=== PATIENT | female | born 1955 | race African-American/Black ===

== ENCOUNTER 2018-03-26 01:33 | Inpatient (IN) | payer OTHER ==
[~2018-03-26] VITALS: Ht 160 cm; Wt 60.8 kg
[~2018-03-26 01:33] MED LIST: FLOMAX(MONOGRA0.4 MG PO; PERCOCET 325 MG1 TA2 PO; PERCOCET 5-3251 EACH PO; ZOFRAN ODT4 M1 SL
--- NOTE | 2018-03-26 01:40 | ED DYSPNEA/ASTHMA COMPLAINT ---
History of Present Illness General Chief Complaint: General Adult Stated Complaint: UNRESPONSIVE Source: family Exam Limitations: no limitations Vital Signs & Intake/Output Vital Signs & Intake/Output Vital Signs Date Time Temp Pulse Resp B/P B/P Pulse O2 O2 Flow FiO2 Mean Ox Delivery Rate 03/26 0526 95 100 03/26 0454 96.5 106 20 103/65 100 BIPAP 25% 03/26 0400 97.9 89 18 110/78 100 BIPAP 03/26 0358 100 BIPAP 28% 03/26 0326 100 26 110/70 100 BIPAP 03/26 0203 123 20 179/101 100 Non ReBreather 03/26 0200 128 99 03/26 0200 99 BIPAP 30% 03/26 0151 99 BIPAP 30% 03/26 0140 100 Non 10L ReBreather Allergies Coded Allergies: NO KNOWN ALLERGIES (09/01/15) Reconcile Medications Budesonide/Formoterol Fumarate (Symbicort 160-4.5 Mcg Inhaler) 160 MCG-4.5 MCG/ ACTUATION HFA.AER.AD 2 PUF INH BID ASTHMA (Reported) Diazepam 10 MG TABLET 1 TAB PO TIDPRN ANXIETY (Reported) Ondansetron (Zofran Odt) 4 MG TAB.RAPDIS 1 TAB SL TID PRN nausea Oxycodone HCl/Acetaminophen (Percocet 5-325 MG Tablet) 1 EACH TABLET 1-2 TAB PO TID PRN pain sixteen....[id number] Triage Nurses Notes Reviewed? yes Onset: Abrupt Duration: hour(s):, getting worse Timing: single episode today Severity: moderate Activities at Onset: none Prior Episodes/Possible Cause: occasional episodes Modifying Factors: Worsens With: other (better with nrb). Associated Symptoms: cough Patient currently breastfeeds: No HPI: 63 yo woman h/o chronic pain, h/o asthma, presents extremely lethargic, with minimal respiratory effort. Per the family, "she was fine, but then suddenly she had problem breathing." Past History Travel History Traveled to [place] past 21 day No Medical History Any Pertinent Medical History? see below for history Neurological: NONE EENT: NONE Cardiovascular: hypertension Respiratory: asthma Gastrointestinal: NONE Hepatic: NONE Renal: nephrolithiasis Musculoskeletal: NONE Psychiatric: NONE Endocrine: BORDERLINE DM Blood Disorders: NONE Cancer(s): NONE TELEPHONE ENGINEER/Reproductive: NONE Surgical History Surgical History: non-contributory Psychosocial History What is your primary language Upper Sorbian Family History Hx Contributory? No Review of Systems Review of Systems Constitutional: Reports: no symptoms. EENTM: Reports: no symptoms. Respiratory: Reports: no symptoms. Cardiovascular: Reports: no symptoms. GI: Reports: no symptoms. Genitourinary: Reports: no symptoms. Musculoskeletal: Reports: no symptoms. Skin: Reports: no symptoms. Neurological/Psychological: Reports: no symptoms. Hematologic/Endocrine: Reports: no symptoms. Immunologic/Allergic: Reports: no symptoms. All Other Systems: Reviewed and Negative Physical Exam Physical Exam Respiratory: rhonchi Comments: Review of Systems - except as otherwise noted in HPI Review of Systems Constitutional:no symptoms. EENTM:no symptoms. Respiratory:no symptoms. Cardiovascular:no symptoms. GI:no symptoms. Genitourinary:no symptoms. Musculoskeletal:no symptoms. Skin:no symptoms. Neurological/Psychological:no symptoms. Hematologic/Endocrine:no symptoms. Immunologic/Allergic:no symptoms. All Other Systems: Reviewed and Negative Physical Exam Physical Exam General Appearance: well developed/nourished, no apparent distress Head: atraumatic, normal appearance Eyes: Bilateral: normal appearance. Ears, Nose, Throat: normal pharynx, normal ENT inspection Neck: normal inspection, supple, full range of motion Respiratory: Bilateral rhonchi with diminished breath sounds Cardiovascular: regular rate/rhythm Gastrointestinal: normal bowel sounds, soft, non-tender, no organomegaly Back: normal inspection, normal range of motion Extremities: normal inspection, normal capillary refill, normal range of motion, mild to moderate anasarca of upper and lower extremities Neurologic/Psych: no motor/sensory deficits, awake, alert, oriented x 3 Skin: intact, normal color, warm/dry Core Measures ACS in differential dx? No CVA/TIA Diagnosis No Sepsis Present: No Sepsis Focused Exam Completed? No Progress Differential Diagnosis: CHF versus pneumonia versus asthma versus other Plan of Care: Orders Procedure Date/time Status CBC WITHOUT DIFFERENTIAL 03/27 0500 Active TROPONIN LEVEL 03/26 0700 Active EKG 03/26 0700 Active Pathway - chart 03/26 0454 Active Code Status 03/26 0454 Active LACTIC ACID 03/26 0436 Complete Patient Data 03/26 0351 Active Admit to inpatient 03/26 0346 Active Intake & Output 03/26 0222 Active ARTERIAL BLOOD GAS (GEN) 03/26 0143 Complete BLOOD CULTURE 03/26 0140 Active BLOOD CULTURE 03/26 0136 Active URINE DRUG SCREEN FOR ER ONLY 03/26 013 Complete URINALYSIS 03/26 013 Complete TROPONIN LEVEL 03/26 013 Active LIPASE 03/26 013 Active LACTIC ACID 03/26 013 Active HEPATIC FUNCTION PANEL 03/26 013 Active ETHANOL 03/26 0136 Active D-DIMER 03/26 013 Complete CBC WITHOUT DIFFERENTIAL 03/26 136 Complete BASIC METABOLIC PANEL 03/26 013 Active AMYLASE 03/26 013 Active EKG 03/26 013 Active TOTAL IRON BINDING CAPACITY 03/26 0125 Active FOLIC ACID 03/26 012 Active FERRITIN 03/26 012 Active SERUM IRON 03/26 012 Active VITAMIN B12 03/26 0125 Active TRC EVALUATION (GEN) 03/26 UNK Active PEAK FLOW MEASUREMENT (GEN) 03/26 UNK Active BIPAP 03/26 UNK Complete House Staff 03/26 UNK Active Lab Add-on Test 03/26 UNK Active VTE Mechanical Prophylaxis 03/26 UNK Active Vital Signs 03/26 UNK Active Current Medications Sig/Jose Start time Last Medication Dose Stop Time Status Admin Methylprednisolone 40 MG Q6 03/26 1200 AC (Solumedrol) Azithromycin 500 MG DAILY 03/26 0900 AC (Zithromax) Sodium Chloride 250 ML (Normal Saline 0.9%) Budesonide/ 2 PUF BID 03/26 0900 AC Formoterol Fumarate (Symbicort) Enoxaparin Sodium 30 MG DAILY 03/26 0900 UNVr (Lovenox) Albuterol Sulfate 3 ML Q4P PRN 03/26 0500 AC (Proventil) Sodium Chloride 1,000 ML ONCE ONE 03/26 0500 AC (Normal Saline 0.9%) 03/26 1819 Magnesium Sulfate 1 GM ONCE ONE 03/26 0345 AC (Mag Sulfate in D5) 03/26 0744 Dextrose/Water 100 ML (D5W) Laboratory Tests 03/26/18 0449: Lactic Acid 1.4 03/26/18 0350: Urine Opiates Screen > 4000.00 H, Methadone Screen < 40, Barbiturate Screen < 60, Ur Phencyclidine Scrn < 6.00, Amphetamines Screen < 100, U Benzodiazepines Scrn < 85, Urine Cocaine Screen < 50, Urine Cannabis Screen 6.40, Urinalysis LIGHT H, Urine Color YEL, Urine Clarity HAZY H, Urine pH 6.0, Ur Specific Hoskins >= 1.030, Urine Protein 30 H, Urine Ketones NEG, Urine Nitrite NEG, Urine Bilirubin NEG, Urine Urobilinogen 0.2, Ur Leukocyte Esterase TRACE H, Ur Microscopic SEDIMENT EXAMINED, Urine RBC 5-10 H, Urine WBC 3-5 H, Ur Epithelial Cells FEW, Urine Bacteria FEW H, Urine Hemoglobin MOD H, Urine Glucose NEG 03/26/18 0246: pH 7.28 *L, pCO2 42, pO2 217 H, HCO3 20 L, ABG O2 Sat (Measured) 97.0, P-50 ( Temp Corrected) 98.9, Carboxyhemoglobin 0.3 L, O2 Concentration % 30%, Temperature 98.9, Respiration Rate 20, O2 Delivery Method Pending, Vent Mode S/T , Expiratory Pressure 4, Inspiratory Pressure 14, Phlebotomy Draw Site RIGHT RADIAL 03/26/18 0125: Anion Gap 11, Estimated GFR 56 L, BUN/Creatinine Ratio 14.0, Glucose 172 H, Lactic Acid 5.7 H, Calcium 9.2, Iron Pending, TIBC Pending, Ferritin Pending, Total Bilirubin 0.4, Direct Bilirubin 0.2, AST 51 H, ALT 49, Alkaline Phosphatase 58, Troponin I < 0.01, Total Protein 6.0 L, Albumin 3.3 L, Amylase 86, Lipase 68, Vitamin B12 Pending, Folate Pending, D-Dimer High Sensitivty 229, CBC w Diff NO MAN DIFF REQ, RBC 3.99 L, MCV 76.6 L, MCH 23.4 L, MCHC 30.5 L, RDW 17.8 H, MPV 7.8, Gran % 35.8 L, Lymphocytes % 46.6, Monocytes % 11.4 H, Eosinophils % 5.4 H, Basophils % 0.8, Absolute Granulocytes 4.2, Absolute Lymphocytes 5.5 H, Absolute Monocytes 1.3 H, Absolute Eosinophils 0.6, Absolute Basophils 0.1, Serum Alcohol < 10.0 Microbiology 03/26 216 BLOOD: Blood Culture - RECD 03/26 0153 BLOOD: Blood Culture - RECD Diagnostic Imaging: Viewed by Me: Radiology Read. Discussed w/RAD: Radiology Read. CXR Impression: PATIENT: VARSHA BESS PRESENT AGE: 63 PATIENT ACCOUNT NO: [id number] : 53 LOCATION: [facility] ORDERING PHYSICIAN: Demetrio Damon MD SERVICE DATE: 03/26/18 EXAM TYPE: RAD - XRY- PORTABLE CHEST XRAY EXAMINATION: XR PORTABLE CHEST CLINICAL INFORMATION: Dyspnea COMPARISON: None TECHNIQUE: Portable frontal view of the chest was obtained. FINDINGS: Lung volumes are symmetric. No focal consolidation is seen. There is suggestion of central peribronchial thickening. No evidence of pneumothorax, pleural effusion, or overt pulmonary edema. The cardiomediastinal contour is unremarkable. No acute osseous findings are seen. IMPRESSION: Suggestion of bronchial wall thickening which can be seen with bronchitis. No focal consolidation identified. DICTATED BY: Sal Mas MD DATE/TIME DICTATED:04/07 HEALTH COMMUNICATIONS SPECIALIST:KORY DATE/TIME TRANSCRIBED:03/26/18300 CONFIDENTIAL, DO NOT COPY WITHOUT APPROPRIATE AUTHORIZATION. <Electronically signed in Other Vendor System> SIGNED BY: Sal Mas MD 03/26/18305 Initial ED EKG: sinus tach, no acute changes. Departure Departure Disposition: STILL A PATIENT Condition: Stable Clinical Impression Primary Impression: Respiratory failure Secondary Impressions: Lactic acidosis, Opioid overdose, Status asthmaticus Referrals: Buzz SCHMITZ,Pedro Cardoza (PCP/Family) Departure Forms: Customer Survey General Discharge Information Admission Note Spoke With: Leeann Upton [facility] Documentation of Exam: Documentation of any treatments & extenuating circumstances including Concerns Regarding Discharge (functional status, medication knowledge or non-compliance, living conditions, etc.) that warrant an admission rather than observation: pt with respiratory failure, requiring sub cut epi, naltrexone, continuous nebs, bipap to stabilize... pt also given steroids/abx... pt merits icu level care for careful management. Critical Care Note Critical Care Note Critical Care Time: 30-74 min
[2018-03-26 02:04] LABS: ABSOLUTE BASOPHIL COUNT 0.1 /CUMM (0.0-0.2); ABSOLUTE EOSINOPHIL COUNT 0.6 /CUMM (0.0-0.7); ABSOLUTE GRANULOCYTE CT 4.2 /CUMM (1.4-6.5); ABSOLUTE LYMPH COUNT 5.5 /CUMM (1.2-3.4); ABSOLUTE MONOCYTE COUNT 1.3 /CUMM (0.10-0.60); BASOPHIL % 0.8 % (0.0-2.0); EOSINOPHIL % 5.4 % (0-5); HEMATOCRIT 30.6 % (37-47); MEAN CORPUSCULAR HGB 23.4 PG (27.0-31.0); MEAN CORPUSCULAR HGB CONC 30.5 G/DL (33.0-37.0); MEAN CORPUSCULAR VOLUME 76.6 FL (81.0-99.0); MEAN PLATELET VOLUME 7.8 FL (7.4-10.4); PLATELET COUNT 442 /CUMM (130-400); RBC DISTRIBUTION WIDTH 17.8 % (11.5-14.5); RED BLOOD CELL CT 3.99 /CUMM (4.20-5.40); WHITE BLOOD CELL COUNT 11.8 /CUMM (4.8-10.8)
[2018-03-26 02:14] LABS: GRANULOCYTE % 35.8 % (42.2-75.2)
--- NOTE | 2018-03-26 03:06 | RADIOLOGY REPORT ---
EXAMINATION: XR PORTABLE CHEST CLINICAL INFORMATION: Dyspnea COMPARISON: None TECHNIQUE: Portable frontal view of the chest was obtained. FINDINGS: Lung volumes are symmetric. No focal consolidation is seen. There is suggestion of central peribronchial thickening. No evidence of pneumothorax, pleural effusion, or overt pulmonary edema. The cardiomediastinal contour is unremarkable. No acute osseous findings are seen. IMPRESSION: Suggestion of bronchial wall thickening which can be seen with bronchitis. No focal consolidation identified.
--- NOTE | 2018-03-26 03:56 | History & Physical ---
Jorge Morse MD,[facility] 03/26/18 0355: General Information and HPI MD Statement: I have seen and personally examined VARSHA BESS and documented this H&P. The patient is a 63 year old F who presented with a patient stated chief complaint of [being unresponsive]. Source of Information: patient, family, old records Exam Limitations: unable to give history, BIPAP in place alert and oriented at time of interview History of Present Illness: Patient is a 63-year-old female with PMH HTN, asthma, anemia, kidney stone ( multiple sx recently, last one 5m ago), impaired blood glucose tolerance, chronic pain due to OA (on pain meds, follows Dr pak), gastric bypass surgery in 2002, presented to the ED with chief complaint of "having trouble breaking" and being unresponsive. Patient was initially unresponsive at the time of arrival to ED, however she was alert and oriented at the time of interview, family members were also present at the bedside contributing in history taking. According to family patient was in usual state of health until earlier in the evening, when she noted she is having problem bleeding due to asthma attack. She used inhalers without improvement and asked family members to bring her to hospital. She lost consciousness in the way to hospital. According to the family she has chronic cough and sputum, which is her baseline. She also has chronic pain of right shoulder and right kidney for which she follows Dr Pak, and takes Valium and Percocet. Patient had history of taking more pills in the past. She also has seasonal allergy, postnasal discharge, nausea or vomiting. Is chronic after bypass surgery, she denied any fever or chills. Review of systems was negative except above. She never had history of intubation or assisted ventilation in the past Patient lives with her sons (possible drug user) doesn't smoke or drink alcohol but chews tobacco. Family history is significant for lung and throat cancer in sister. Patient currently works in [employer] and will retire in one months. A Allergies/Medications Allergies: Coded Allergies: NO KNOWN ALLERGIES (09/01/15) Past History Travel History Traveled to [place] past 21 day No Medical History Neurological: NONE EENT: NONE Cardiovascular: hypertension Respiratory: asthma Gastrointestinal: NONE Hepatic: NONE Renal: nephrolithiasis Musculoskeletal: NONE Psychiatric: NONE Endocrine: BORDERLINE DM Blood Disorders: NONE Cancer(s): NONE CUSTOM GRINDER/Reproductive: NONE Surgical History Surgical History: non-contributory Past Family/Social History Psychosocial History Illicit Drug Use: U Review of Systems Review of Systems Constitutional: Reports: see HPI. Exam & Diagnostic Data Last 24 Hrs of Vital Signs/I&O Vital Signs Date Time Temp Pulse Resp B/P B/P Pulse O2 O2 Flow FiO2 Mean Ox Delivery Rate 03/26 0454 96.5 106 20 103/65 100 BIPAP 25% 03/26 0400 97.9 89 18 110/78 100 BIPAP 03/26 0358 100 BIPAP 28% 03/26 0326 100 26 110/70 100 BIPAP 03/26 0203 123 20 179/101 100 Non ReBreather 03/26 0200 128 99 03/26 0200 99 BIPAP 30% 03/26 0151 99 BIPAP 30% 03/26 0140 100 Non 10L ReBreather Intake & Output 03/26 0800 03/26 0000 03/25 1600 Intake Total 0 Output Total Balance 0 Intake, Oral 0 Physical Exam General Appearance Alert, Oriented X3, Cooperative, drowsy but arousable, BiPAP in place Skin No Significant Lesion Skin Temp/Moisture Exam: Warm/Dry Sepsis Skin Exam (color): Normal for Ethnicity HEENT Atraumatic, EOMI, pupils reactive to light Neck No JVD Cardiovascular Regular Rate, Normal S1, Normal S2 Lungs decreased air entry bilaterally Abdomen Soft, No Tenderness Neurological Normal Speech, Strength at 5/5 X4 Ext Extremities No Edema Last 24 Hrs of Labs/[place]: Laboratory Tests 03/26/18 0449: Lactic Acid Pending 03/26/18 0350: Urine Opiates Screen > 4000.00 H, Methadone Screen < 40, Barbiturate Screen < 60, Ur Phencyclidine Scrn < 6.00, Amphetamines Screen < 100, U Benzodiazepines Scrn < 85, Urine Cocaine Screen < 50, Urine Cannabis Screen 6.40, Urinalysis LIGHT H, Urine Color YEL, Urine Clarity HAZY H, Urine pH 6.0, Ur Specific [place] >= 1.030, Urine Protein 30 H, Urine Ketones NEG, Urine Nitrite NEG, Urine Bilirubin NEG, Urine Urobilinogen 0.2, Ur Leukocyte Esterase TRACE H, Ur Microscopic SEDIMENT EXAMINED, Urine RBC 5-10 H, Urine WBC 3-5 H, Ur Epithelial Cells FEW, Urine Bacteria FEW H, Urine Hemoglobin MOD H, Urine Glucose NEG 03/26/18 0246: pH 7.28 *L, pCO2 42, pO2 217 H, HCO3 20 L, ABG O2 Sat (Measured) 97.0, P-50 ( Temp Corrected) 98.9, Carboxyhemoglobin 0.3 L, O2 Concentration % 30%, Temperature 98.9, Respiration Rate 20, O2 Delivery Method Pending, Vent Mode S/T , Expiratory Pressure 4, Inspiratory Pressure 14, Phlebotomy Draw Site RIGHT RADIAL 03/26/18 0125: Anion Gap 11, Estimated GFR 56 L, BUN/Creatinine Ratio 14.0, Glucose 172 H, Lactic Acid 5.7 H, Calcium 9.2, Total Bilirubin 0.4, Direct Bilirubin 0.2, AST 51 H, ALT 49, Alkaline Phosphatase 58, Troponin I < 0.01, Total Protein 6.0 L, Albumin 3.3 L, Amylase 86, Lipase 68, D-Dimer High Sensitivty 229, CBC w Diff NO MAN DIFF REQ, RBC 3.99 L, MCV 76.6 L, MCH 23.4 L, MCHC 30.5 L, RDW 17.8 H, MPV 7.8, Gran % 35.8 L, Lymphocytes % 46.6, Monocytes % 11.4 H, Eosinophils % 5.4 H, Basophils % 0.8, Absolute Granulocytes 4.2, Absolute Lymphocytes 5.5 H, Absolute Monocytes 1.3 H, Absolute Eosinophils 0.6, Absolute Basophils 0.1, Serum Alcohol < 10.0 Microbiology 03/26 0216 BLOOD: Blood Culture - RECD 03/26 0153 BLOOD: Blood Culture - RECD Assessment/Plan Assessment: Patient is a 63-year-old female presented with respiratory depression and being unresponsive Chronic sputum and cough, asthma Chronic pain on meds, taking exrtra pills in the past Drug abuse in family memebers [facility] HTN, asthma, anemia, kidney stone (multiple sx recently, last one 5m ago), impaired blood glucose tolerance, chronic pain due to OA (on pain meds, follows Dr pak), gastric bypass surgery in 2002. VS, Ph Ex at admission: Saturations were more than 90% with BiPAP, TN 120, blood pressure insignificant Labs at admission: WBC 11.8, Hgb 9.3, MCV 76, RDW 17, Eos 5 K 5,3, bicarb 26, LA 5.7 ABG: PH 7.2, bicarb 20 Utox: opioid positive UA pending Imagings at admission: CXR: Suggestion of bronchial wall thickening which can be seen with bronchitis. No focal consolidation identified. At the time of arrival to the ED patient was unresponsive, pupils were pinpoint, patient responded quickly to narcan. Patient was admitted to ICU for management of following conditions: Acute hypoxicc respiratory failure Multifactorial, asthma, opiate use, bronchitis lactic acidosis Chronic medical conditions Microcytic anemia - admit to ICU - BIPAP in place, Puls ox - Vital signs - Neurochecks - continue IV fluids - Nebs, TRC - solumedrol, azithromycin - Hold pain meds, consider to start percocet tomorrow - confirm home medications - NPO for now - swallow evaluation in AM - CRCU, Pulm consult - iron studies DVT ppx: ALPS and pharmacologic FC Nothing by mouth As Ranked By This Provider Problem List: 1. Respiratory failure Core Measures/Misc (07/07) Acute Coronary Syndrome ACS Diagnosis: No Congestive Heart Failure Congestive Heart Failure Diagnosis No Cerebrovascular Accident CVA/TIA Diagnosis: No VTE (View Protocol) VTE Risk Factors Age>40 No Mechanical VTE Prophylaxis d/t N/A MechProphylax Ordered No VTE Pharm Prophylaxis d/t NA PharmProphylax ordered Sepsis (View protocol) Sepsis Present: No If YES complete Sepsis Event Note If YES complete Sepsis Event Note Rashad Tamez 03/26/18 0400: General Information and HPI Allergies/Medications Home Med list Budesonide/Formoterol Fumarate (Symbicort 160-4.5 Mcg Inhaler) 160 MCG-4.5 MCG/ ACTUATION HFA.AER.AD 2 PUF INH BID ASTHMA (Reported) Diazepam 10 MG TABLET 1 TAB PO TIDPRN ANXIETY (Reported) Ondansetron (Zofran Odt) 4 MG TAB.RAPDIS 1 TAB SL TID PRN nausea Oxycodone HCl/Acetaminophen (Percocet 5-325 MG Tablet) 1 EACH TABLET 1-2 TAB PO TID PRN pain sixteen....[id number] Past Family/Social History Family History Relations & Conditions if any MOTHER (Diabetes mellitus Lung cancer). Exam & Diagnostic Data Last 24 Hrs of Vital Signs/I&O Vital Signs Date Time Temp Pulse Resp B/P B/P Pulse O2 O2 Flow FiO2 Mean Ox Delivery Rate 03/26 0840 97 Nasal 2.0L Cannula 03/26 08 99 Nasal 2.0L Cannula 03/26 07 99.0 102 22 106/74 99 Nasal 2.0L Cannula 03/26 0657 97 Nasal 2.0L Cannula 03/26 0657 98.4 97 15 90/10 97 Nasal 2.0L Cannula 03/26 0552 98.3 109 18 110/70 100 BIPAP 28% 03/26 0526 95 100 03/26 0454 96.5 106 20 103/65 100 BIPAP 25% 03/26 0400 97.9 89 18 110/78 100 BIPAP 03/26 0358 100 BIPAP 28% 03/26 0326 100 26 110/70 100 BIPAP 03/26 0203 123 20 179/101 100 Non ReBreather 03/26 0200 128 99 03/26 0200 99 BIPAP 30% 03/26 0151 99 BIPAP 30% 03/26 0140 100 Non 10L ReBreather Intake & Output 03/26 1600 03/26 0800 03/26 0000 Intake Total 1100 Output Total Balance 1100 Intake, IV 1100 Intake, Oral 0 Patient 129 lb Weight Weight Bed scale Measurement Method Core Measures/Misc (07/07) Sepsis (View protocol) If YES complete Sepsis Event Note If YES complete Sepsis Event Note Resident Review Statement Resident Statement: examined this patient, discussed with r d internship, agreed with r d internship, discussed with family, reviewed EMR data (avail), reviewed images, amended to note Other Findings: This is a 63 years old -[place] woman who has history of chronic pain due to knee and rotator cuff problems on Percocet, asthma on Symbicort pro air and albuterol who has never been admitted or intubated previously and presented with one-day history of shortness of breath for which the family decided to bring her to the hospital and upon arrival the patient was apneic. She was given 2 doses of Narcan after which she waked up but was noted to be congested and because of that was given subcutaneous epinephrine with slight improvement. Patient's saturation improved to 100% on Ambu bagging and was put on BiPAP. She has no history of previous overdose of admission because of overdose. When interviewing the patient would not talk much because of BiPAP multiple grandchildren in the room volunteered that the patient has a pill problem whereby she has been using her pain medications excessively and is living with her son who is an addict and not likely to be helpful. The patient has history of gastric bypass in 2001, she has kidney stones that were treated at [facility] about 5 months ago the only supplement she takes his B12 and follows up with GI Dr. Bustos. She has a bad right rotator cuff and right knee that she has scheduled for surgical revision to try to control the pain which is the reason why she is on opiates medication. Vitals on arrival respiration of 26 blood pressure 110/70 and initial saturation was 100% on BiPAP Physical examination: Lying comfortably on the bed not in any acute distress with BiPAP running, about 6 granddaughters by bedside one of whom lives with the patient. Pupils were bilaterally equal and reacting to light, dry mucous membranes. Chest: Decreased breath sounds bilaterally no obvious wheezing (this was after treatment) CVS: Regular rate and rhythm normal S1-S2 no murmurs Abdomen: Normal contour moving with respiration and no palpable masses nor tenderness Neuro: Alert and oriented to time place and person normal power and tone in both upper and lower limbs Extremities: No cyanosis or edema Labs: Microcytic anemia with H&H 9.3 and 30.6, MCV 76.6, slight hyperkalemia 5.2 , lactic acidosis 5.7 negative D dimer is with normal liver function Initial ABG showed pH of 7.28, and O2 sat of 42 oxygen of 217 and bicarbonate of 20 CXR: Bronchial wall thickening which can be seen with bronchitis no focal consolidation identified EKG: Normal sinus rhythm normal axis no ST-T wave changes QTC of 470 Assessment and plan This is a 63 years old -[place] woman who is presenting with shortness of breath and an apneic episode that required bagging and responded well to Narcan but showed evidence of congestion for which she received subcutaneous epinephrine, nebulization and steroid with improvement of symptoms on BiPAP. This patient has underlying asthma and is taking Percocet for chronic joint pains with very high level of Percocet in toxicology studies. The presentation can be due to opiates overdose and element of underlying asthma Acute hypoxic respiratory failure Opiate overdose Asthma exacerbation Chronic pain Chronic opiates consumption Microcytic anemia Lactic acidosis Bronchitis Admit the patient to critical care unit Vital signs every hour TRC evaluation and cardiac Albuterol nebulization every 4 when necessary Azithromycin 500 mg daily Solu-Medrol 40 mg every 6 Repeat ABG if patient clinical condition deteriorates otherwise no need of ABG Nothing by mouth Continue to trend lactic acid normal level Gentle hydration with normal saline 75 mL/h Consider restarting opiates when patient is fully awake [this patient is chronic opiates user and can withdrawal if not restarted] patient has as needed dose of 10 mg Valium with medication clinical history showing she feel recently 90 tablets however upon questioning the patient has not been taking the medication frequently took 1 tablet 3 days ago and before that took 1 tablet last week. We will not start Valium but monitor closely in case the inflammation is not right and the patient goes into benzo withdrawal seizures. CT COOLING PAN TENDER reviewed and showed extensive claim history. Iron studies, folic acid and B12 levels Lovenox for DVT prophylaxis Patient is full code Won SCHMITZ, [facility] 03/26/18 0526: Core Measures/Misc (07/07) Sepsis (View protocol) If YES complete Sepsis Event Note If YES complete Sepsis Event Note Attending MD Review Statement Attending Statement Attending MD Statement: examined this patient, discuss w/resident/PA/ENGINE ROOM HELPER, agreed w/resident/PA/ENGINE ROOM HELPER, discussed with family, reviewed images, amended to note Attending Assessment/Plan: 63 yo F with h/o asthma, seasonal allergies, chronic right knee and shoulder pain on opiate (percocets), nephrolithiasis, s/p gastric bypass, is brought in for difficulty breathing. Family at bedside reports that for the past 1 week, patient's asthma symptoms have gotten worse due to pollen. Patient was supposed to follow up with PCP. Chronic cough but no fever that family noted. Patient is always cold. Upon ER arrival, patient had agonal respirations and became unresponsive. Patient was ventilated with bag-mask, was given a dose of narcan with adequate response. Sats improved. She then received epi SC, solumedrol and was placed on Bipap. At the time of interview, patient appears comfortable, reports pain in her right knee. She denies chest pain, dyspnea, nausea, vomiting or abdominal pain. Family reports she has a pill problem and ends up taking multiple doses of Percocet instead of as needed. Patient also has a medical marijuana card. She chews tobacco. Patient follows with pain management Dr. Solorio who prescribed her percocet and also recently prescribed Valium. Patient is due to under rotator surgery for right shoulder and right knee replacement. Family is requesting help with her pill problem as she is very stubborn and does not listen to her fmaily members. Apparently both of her sons also have an addiction problem. Vitals: afebrile, tachycardic, BP 103/65, sats 100% on Bipap. Exam: AAO, on Bipap. PERRL, Neck supple, dry mucosa, skin warm and dry. Chest b/l reduced air entry with few wheezes, Heart S1S2 regular, Abd soft, NT. Neuro nonfocal, LE: no edema. Labs: WBC 11.8, microcytic anemia with H/H 9.3/30.6, Plt 442, eosinophils 5.4. D -dimer 229, K 5.2, bicarb 26, glucose 172, lactic acid 5.7 --> 1.4, trop neg. UA not impressive for UTI. Urine tox positive for opiates >4000, and cannabis. Alcohol <10. AB.28/42/217/20. CXR: suggestion of bronchial wall thickening which can be seen with bronchitis. No focal consolidation. EKG: sinus tachycardia, Qtc 470, poor R-wave progression. Assessment and plan: 1. Acute hypoxemic and hypercarbic respiratory failure 2. Unresponsive episode 3. Opiate dependence and overdose 4. Asthma exacerbation in the setting of acute bronchitis 5. Chronic pain on opiates 6. Microcytic anemia s/p gastric bypass 7. Metabolic acidosis 2/2 lactic acidosis - Admit to ICU - Vitals Q1 hour - Maintain on current Bipap settings - NPO while on Bipap - Scheduled and PRN nebs - Sputum cultures - Continue IV solumedrol and IV azithro - Can give a break off Bipap in AM, allow to eat/ drink - Taper to supplemental oxygen - CRCU consult - Gentle IV fluids - Resume percocet every 6 hourly - Case management consult family requesting help with patient's pill problem as patient is in denial. ?Visiting nurse to give her meds? - Work up anemia check iron studies, TSH, B12, folic acid. - Repeat EKG and troponin in AM DVT ppx Hep SC. Full code. TTS> 45 mins
[2018-03-26] MEDS ORDERED: DIAZEPAM10 M1 PO (05:19)
[2018-03-26] MEDS ORDERED: SYMBICORT 16010.2 GM INH (05:19)
--- NOTE | 2018-03-26 05:27 | Admission Certification ---
Admission Certification Certification Statement - As attending physician, I certify that at the time of - admission, based on clinical presentation, severity of - symptoms, need for further diagnostic testing and - therapeutic interventions, and risk of adverse outcomes - without in-hospital treatment, in my clinical assessment, - this patient requires an acute hospital stay for a minimum - of two nights or longer. I have also considered psychsocial - factors such as support system, advanced age, financial - issues, cognitive issues, and failed out-patient treatments, - past re-admission history, safety of patient, and lack of - compliance as applicable. Specific rationale supporting this admission is: Acute hypoxemic and hypercarbic respiratory failure in the setting of opiate use and asthma exacerbation.
[2018-03-26 06:57] VITALS: BP 90/10; BP 90/70
[2018-03-26 07:00] VITALS: BP 106/74
--- NOTE | 2018-03-26 07:07 | Cons- CRCU ---
See Addendum Giovanni Cancino MD 03/26/18 0706: General Information and HPI Consulting Request Date of Consult: 03/26/18 Requested By: Dr Upton Reason for Consult: Acute hypoxic respiratory failure Opiate overdose Asthma exacerbation Source of Information: patient Exam Limitations: no limitations History of Present Illness: 63-year-old female with past medical history of asthma, hypertension, anemia, kidney stones with multiple surgeries, chronic pain secondary to osteoarthritis, gastric bypass surgery in 2004, was brought in by ambulance after being found unresponsive, with pinpoint pupil, and received Narcan with some arousal. According to the patient, she was in pain, and was given morphine tablet from one of her acquaintances which led to her condition. She is not sure about the dose of the tablet but thinks it was 100 mg of morphine (no info about IR or ER) . She was found to have acute hypoxic respiratory failure in the ED, and was placed on BiPAP, and overnight improved. She was also found to be wheezing and received IV steroids overnight. Overnight, she seems to have improved much, and current complaints are only about her chronic back pain in her nicotine dependence, asking for nicotine patch. Allergies/Medications Allergies: Coded Allergies: NO KNOWN ALLERGIES (09/01/15) Home Med List: Budesonide/Formoterol Fumarate (Symbicort 160-4.5 Mcg Inhaler) 160 MCG-4.5 MCG/ ACTUATION HFA.AER.AD 2 PUF INH BID ASTHMA (Reported) Diazepam 10 MG TABLET 1 TAB PO TIDPRN ANXIETY (Reported) Ondansetron (Zofran Odt) 4 MG TAB.RAPDIS 1 TAB SL TID PRN nausea Oxycodone HCl/Acetaminophen (Percocet 5-325 MG Tablet) 1 EACH TABLET 1-2 TAB PO TID PRN pain sixteen....[id number] Current Medications: Current Medications Sig/Jose Start time Last Medication Dose Route Stop Time Status Admin Albuterol Sulfate 3 ML Q6 03/26 0615 AC INH Albuterol Sulfate 3 ML Q4P PRN 03/26 0500 AC INH Albuterol Sulfate 3 ML ONCE ONE 03/26 0200 DC INH 03/26 0201 Albuterol Sulfate 3 ML ONCE ONE 03/26 0200 DC INH 03/26 0201 Albuterol Sulfate 0 .STK-MED ONE 03/26 0155 DC INH Albuterol Sulfate 3 ML ONCE ONE 03/26 0145 DC 03/26 INH 03/26 0146 0256 Albuterol Sulfate 3 ML ONCE ONE 03/26 0145 DC 03/26 INH 03/26 0146 0258 Albuterol Sulfate 3 ML ONCE ONE 03/26 0145 DC 03/26 INH 03/26 0146 0258 Albuterol Sulfate 3 ML ONCE ONE 03/26 0145 DC 03/26 INH 03/26 0146 0258 Albuterol Sulfate 3 ML ONCE ONE 03/26 0145 DC 03/26 INH 03/26 0146 0258 Albuterol Sulfate 3 ML ONCE ONE 03/26 0145 DC 03/26 INH 03/26 0146 0258 Azithromycin 500 MG DAILY 03/26 09 AC Sodium Chloride 250 ML IV Azithromycin 500 MG ONCE ONE 03/26 0345 DC 03/26 Sodium Chloride 250 ML IV 03/26 0444 0536 Budesonide/ 2 PUF BID 03/26 0900 AC Formoterol Fumarate INH Ceftriaxone Sodium 0 .STK-MED ONE 03/26 05 DC .ROUTE Ceftriaxone Sodium 1,000 MG ONCE ONE 03/26 0345 DC 03/26 IV 03/26 0346 0536 Enoxaparin Sodium 30 MG DAILY 03/26 0900 AC SC Epinephrine 0 .STK-MED ONE 03/26 0326 DC .ROUTE Epinephrine 0.3 MG ONCE ONE 03/26 0145 DC 03/26 SC 03/26 0146 0139 Ipratropium [place] 2.5 ML ONCE ONE 03/26 0200 DC INH 03/26 0201 Ipratropium [place] 2.5 ML ONCE ONE 03/26 0200 DC INH 03/26 0201 Ipratropium [place] 2.5 ML ONCE ONE 03/26 0145 DC 03/26 INH 03/26 0146 0256 Magnesium Sulfate 1 GM ONCE ONE 03/26 0345 AC 03/26 Dextrose/Water 100 ML IV 03/26 0744 0536 Methylprednisolone 40 MG Q6 03/26 1200 AC IV Methylprednisolone 0 .STK-MED ONE 03/26 0150 DC .ROUTE Methylprednisolone 125 MG ONCE ONE 03/26 0145 DC 03/26 IV 03/26 0146 0140 Naloxone HCl 2 MG ONCE ONE 03/26 0145 DC 03/26 IV 03/26 0146 0135 Naloxone HCl 0 .STK-MED ONE 03/26 0143 DC .ROUTE Ondansetron HCl 0 .STK-MED ONE 03/26 0150 DC .ROUTE Ondansetron HCl 4 MG ONCE ONE 03/26 0145 DC 03/26 IV 03/26 0146 0202 Sodium Chloride 1,000 ML ONCE ONE 03/26 0500 AC 03/26 IV 03/26 1819 0540 Review of Systems Review of Systems Constitutional: Reports: no symptoms. EENTM: Reports: no symptoms. Cardiovascular: Reports: no symptoms. Respiratory: Reports: cough. GI: Reports: no symptoms. Genitourinary: Reports: no symptoms. Musculoskeletal: Reports: back pain (chronic). Skin: Reports: no symptoms. Neurological/Psychological: Reports: no symptoms. Hematologic/Endocrine: Reports: no symptoms. All Other Systems: Reviewed and Negative Past History Travel History Traveled to [place] past 21 day No Medical History Blood Transfusion Hx: No Neurological: NONE EENT: NONE Cardiovascular: hypertension Respiratory: asthma Gastrointestinal: NONE Hepatic: NONE Renal: nephrolithiasis Musculoskeletal: NONE Psychiatric: NONE Endocrine: BORDERLINE DM Blood Disorders: NONE Cancer(s): NONE SECURITY ASSOCIATE/Reproductive: NONE Surgical History Surgical History: non-contributory Psychosocial History Where Do You Live? Home Smoking Status: Never Smoked ETOH Use: denies use Illicit Drug Use: just got morphine from friend for pain Functional Ability ADLs Independent: dressing, eating, toileting, bathing. Ambulation: independent IADLs Independent: shopping, housework, finances, food prep, telephone, transportation , medication admin. Exam & Diagnostic Data Last 24 Hrs of Vital Signs/I&O Vital Signs Date Time Temp Pulse Resp B/P B/P Pulse O2 O2 Flow FiO2 Mean Ox Delivery Rate 03/26 0657 98.4 97 15 90/10 97 Nasal 2.0L Cannula 03/26 0552 98.3 109 18 110/70 100 BIPAP 28% 03/26 0526 95 100 03/26 0454 96.5 106 20 103/65 100 BIPAP 25% 03/26 0400 97.9 89 18 110/78 100 BIPAP 03/26 0358 100 BIPAP 28% 03/26 0326 100 26 110/70 100 BIPAP 03/26 0203 123 20 179/101 100 Non ReBreather 03/26 0200 128 99 03/26 0200 99 BIPAP 30% 03/26 0151 99 BIPAP 30% 03/26 0140 100 Non 10L ReBreather Intake & Output 03/26 0800 06 0000 06 1600 Intake Total 1100 Output Total Balance 1100 Intake, IV 1100 Intake, Oral 0 Physical Exam General Appearance: well developed/nourished, alert, awake, anxious Head: atraumatic, normal appearance Eyes: Bilateral: normal appearance. Ears, Nose, Throat: normal pharynx, hearing grossly normal Neck: normal inspection, supple, full range of motion, no JVD Respiratory: chest non-tender, b/l breath sounds decreased Cardiovascular: regular rate/rhythm Peripheral Pulses: 3+ radial (R), 3+ radial (L) Gastrointestinal: normal bowel sounds, soft, non-tender Extremities: normal inspection, normal capillary refill, normal range of motion, no edema Neurologic/Psych: no motor/sensory deficits, awake, alert, oriented x 3, normal mood/affect, grossly intact Cranial Nerves: normal hearing, normal speech, PERRL Skin: intact, normal color, warm/dry Lymphatic: no anterior cervical shanthi Last 48 Hrs of Labs/[place]: Laboratory Tests 03/26/18 0449: Lactic Acid 1.4 03/26/18 0350: Urine Opiates Screen > 4000.00 H, Methadone Screen < 40, Barbiturate Screen < 60, Ur Phencyclidine Scrn < 6.00, Amphetamines Screen < 100, U Benzodiazepines Scrn < 85, Urine Cocaine Screen < 50, Urine Cannabis Screen 6.40, Urinalysis LIGHT H, Urine Color YEL, Urine Clarity HAZY H, Urine pH 6.0, Ur Specific [place] >= 1.030, Urine Protein 30 H, Urine Ketones NEG, Urine Nitrite NEG, Urine Bilirubin NEG, Urine Urobilinogen 0.2, Ur Leukocyte Esterase TRACE H, Ur Microscopic SEDIMENT EXAMINED, Urine RBC 5-10 H, Urine WBC 3-5 H, Ur Epithelial Cells FEW, Urine Bacteria FEW H, Urine Hemoglobin MOD H, Urine Glucose NEG 03/26/18 0246: pH 7.28 *L, pCO2 42, pO2 217 H, HCO3 20 L, ABG O2 Sat (Measured) 97.0, P-50 ( Temp Corrected) 98.9, Carboxyhemoglobin 0.3 L, O2 Concentration % 30%, Temperature 98.9, Respiration Rate 20, O2 Delivery Method Pending, Vent Mode S/T , Expiratory Pressure 4, Inspiratory Pressure 14, Phlebotomy Draw Site RIGHT RADIAL 03/26/18 0125: Anion Gap 11, Estimated GFR 56 L, BUN/Creatinine Ratio 14.0, Glucose 172 H, Lactic Acid 5.7 H, Calcium 9.2, Iron 27 L, TIBC 349, Ferritin 6.7 L, Total Bilirubin 0.4, Direct Bilirubin 0.2, AST 51 H, ALT 49, Alkaline Phosphatase 58, Troponin I < 0.01, Total Protein 6.0 L, Albumin 3.3 L, Amylase 86, Lipase 68, Vitamin B12 650, Folate 12.9, TSH 3.960, Free T4 1.09, D-Dimer High Sensitivty 229, CBC w Diff NO MAN DIFF REQ, RBC 3.99 L, MCV 76.6 L, MCH 23.4 L, MCHC 30.5 L, RDW 17.8 H, MPV 7.8, Gran % 35.8 L, Lymphocytes % 46.6, Monocytes % 11.4 H, Eosinophils % 5.4 H, Basophils % 0.8, Absolute Granulocytes 4.2, Absolute Lymphocytes 5.5 H, Absolute Monocytes 1.3 H, Absolute Eosinophils 0.6 , Absolute Basophils 0.1, Serum Alcohol < 10.0 Diagnostic Data EKG Results nsr, in ischemic changes CXR Results 03/26/18: Suggestion of bronchial wall thickening which can be seen with bronchitis. No focal consolidation identified. Assessment/Plan CRCU Impression/Plan: 63-year-old female with past medical history of asthma, hypertension, anemia, kidney stones with multiple surgeries, chronic pain secondary to osteoarthritis, gastric bypass surgery in 2004, was brought in by ambulance after being found unresponsive, arousal on Narcan. She is currently admitted in the ICU for the management of following issues: RESPIRATORY # Acute hypoxic respiratory failure, improving, now on NC@ 2L/min -Differentials: opiate overdose, asthma exacerbation, possibly mixed Patient seems much better compared to her presentation. We'll continue to watch for any respiratory changes. -Reduced IV Solu-Medrol to twice a day -Continue azithromycin for bronchitis -TRC/nebs -nitro worker consult for substance abuse, safety at home INFECTIOUS DISEASE # Bronchitis Continue Azithromycin daily CARDIOLOGY # Elevated troponin, likely type 2 NM Patient does NOT have any chest pain/pressure/heaviness and is comfortable. No ischemic changes in the EKG either. Elevation of troponin is likely due to Type 2 NM. - Echocardiogram ordered - trend Trop, EKG - Will call cardiology if symptomatic or troponin continues to trend up HEMATOLOGY # Anemia, chronic METABOLIC # Lactic acidosis, resolved ALIMENTARY No issues NEPHROLOGY No issues NEUROLOGY No issues Other: Nicotine dependence HOUSEKEEPING Diet: Heart healthy diet DVT prophylaxis: SQ Lovenox Code status: Full code IV access: Peripheral Family update: Done with the patient today Problem List: 1. Respiratory failure 2. Opioid overdose Consult Acknowledgment - Thank you for your consult request. Miguel Handy MD 03/26/18 1043: Assessment/Plan CRCU Consult Acknowledgment - Thank you for your consult request.
[2018-03-26 15:11] LABS: PT 11.9 SEC (9.4-12.5); PTT 27 SEC (25-37)
[2018-03-26 16:00] VITALS: BP 90/70
[2018-03-26 23:00] VITALS: BP 110/70
--- NOTE | 2018-03-26 23:58 | ECHOCARDIOGRAM REPORT ---
BESS VARSHA Age: 63 : 1955 Gender: F Exam Date: 03/26/2018 18:44 Exam Location: [facility] Ht (in): 63 Wt (lb): 128 BSA: 1.61 BP: 106 / 74 Ordering Physician: Giovanni Cancino MD Referring Physician: Giovanni Cancino MD Technologist: Jonna Emerson NICOLE Room Number: 103 Indications: MYOCARDIAL ISCHEMIA/AK Rhythm: Sinus Technical Quality: fair FINDINGS Left Ventricle Normal size left ventricle. Moderately abnormal left ventricular ejection fraction estimated at 30-35%. Hypokinetic anterior wall. Hypokinetic septum. [place] hypokinetic. Right Ventricle normal Right Atrium normal Left Atrium mildly enlarged Mitral Valve mitral leaflet thickening; no prolapse; mild MR Aortic Valve Moderate aortic sclerosis; trileaflet valve; no Tricuspid Valve Grossly normal; mild to moderate TR Pulmonic Valve Mild PI Pericardium No effusion Great Vessels Grossly normal CONCLUSIONS 1. Moderate aortic sclerosis is present with no valvular stenosis or insufficiency. 2. Mitral leaflet thickening is present with mild mitral insufficiency and mild left atrial enlargement 3. There is no significant pericardial fluid present 4. The left ventricular chamber size is normal. There is marked hypokinesia of the mid to distal septum, anteroapical and anterolateral segments with an ejection fraction of approximately 30%. There is no apical thrombus detected. 5. The right heart structures are grossly normal. Mild to moderate tricuspid insufficiency is present with mild pulmonic insufficiency and an estimated RV sysrolic pressure of 30 mmHg Titi Fajardo M.D. (Electronically Signed) Final Date: 26 March 2018 23:58 MEASUREMENTS (Male / Female) Normal Values 2D ECHO LV Diastolic Diameter PLAX 4.1 cm 4.2 - 5.9 / 3.9 - 5.3 cm LV Systolic Diameter PLAX 2.0 cm 2.1 - 4.0 cm LV Fractional Shortening PLAX 51.2 % 25 - 46 % LV Ejection Fraction 2D Teich 82.9 % IVS Diastolic Thickness 1.2 cm LVPW Diastolic Thickness 1.2 cm LV Relative Wall Thickness 0.6 RV Internal Dim ED PLAX 3.1 cm 1.9 - 3.8 cm LVOT Diameter 2.0 cm Aortic Root Diameter 2.8 cm LA Systolic Diameter LX 3.7 cm 3.0 - 4.0 / 2.7 - 3.8 cm LA Volume 45.0 cm 18 - 58 / 22 - 52 cm Ascending Aorta Diameter 3.0 cm DOPPLER AV Peak Velocity 160.0 cm/s AV Peak Gradient 10.2 mmHg AV Mean Velocity 118.0 cm/s AV Mean Gradient 6.0 mmHg AV Velocity Time Integral 31.8 cm LVOT Peak Velocity 106.0 cm/s LVOT Peak Gradient 4.5 mmHg LVOT Mean Velocity 76.7 cm/s LVOT Mean Gradient 3.0 mmHg LVOT Velocity Time Integral 20.2 cm LVOT Stroke Volume 63.5 cm AV Area Cont Eq vti 2.0 cm AV Area Cont Eq pk 2.1 cm MV Peak Velocity 116.0 cm/s MV Peak Gradient 5.4 mmHg MV Mean Velocity 76.9 cm/s MV Mean Gradient 3.0 mmHg Mitral E Point Velocity 86.1 cm/s Mitral A Point Velocity 92.1 cm/s Mitral E to A Ratio 0.9 MV PHT Velocity 121.0 cm/s MV Deceleration Story 601.0 cm/s MV Pressure Half Time 60.4 ms MV Area PHT 3.6 cm MV Deceleration Time 172.0 ms TR Peak Velocity 249.0 cm/s TR Peak Gradient 24.8 mmHg Right Atrial Pressure 5.0 mmHg Pulmonary Artery Systolic Pressu 29.8 mmHg Right Ventricular Systolic Press 29.8 mmHg PV Peak Velocity 112.0 cm/s PV Peak Gradient 5.0 mmHg PV Mean Velocity 74.3 cm/s PV Mean Gradient 3.0 mmHg PV Velocity Time Integral 20.5 cm LV E' Lateral Velocity 7.3 cm/s Mitral E to LV E' Lateral Ratio 11.7 LV E' Septal Velocity 10.2 cm/s Mitral E to LV E' Septal Ratio 8.4
--- NOTE | 2018-03-27 00:30 | Cons- Cardiology ---
General Information and HPI Consulting Request Date of Consult: 03/27/18 Requested By: Miguel Handy MD Reason for Consult: Elevated troponin with abnormal echocardiogram Source of Information: patient, old records Exam Limitations: no limitations History of Present Illness: The patient is a pleasant 63-year-old female. Her past medical history is remarkable for hypertension, asthma, anemia, kidney stones, chronic pain from osteoarthritis, prior gastric bypass surgery in 2002, etc. She presented to the emergency room with a chief complaint of mental status changes and unresponsiveness. She was diagnosed with acute hypoxic respiratory failure And admitted to the ICU for monitoring and treatment. Her troponin was noted to be elevated. Subsequently, she was also noted to have evolving ECG changes and her echocardiogram showed an anteroseptal and anteroapical wall motion abnormality with an ejection fraction of approximately 30-35%. The patient adamantly denies any cardiac symptoms or known cardiac history. Allergies/Medications Allergies: Coded Allergies: NO KNOWN ALLERGIES (09/01/15) Home Med List: Aspirin (Aspirin*) 81 MG TAB.CHEW 1 TAB PO DAILY HEART Atorvastatin Calcium 20 MG TABLET 1 TAB PO 1700 HEART Azithromycin 250 MG TABLET 1 TAB PO DAILY Bronchitis Budesonide/Formoterol Fumarate (Symbicort 160-4.5 Mcg Inhaler) 160 MCG-4.5 MCG/ ACTUATION HFA.AER.AD 2 PUF INH BID ASTHMA (Reported) Diazepam 10 MG TABLET 1 TAB PO TIDPRN ANXIETY (Reported) Heparin Sod,Porcine/0.9 % NaCl (Heparin 25,000 Unit/500 Ml-Ns) 25,000 UNIT/500 ML (50 UNIT/ML) IV.SOLN 1 UNK IV CONTINOUS INFUSION NSTEMI Omeprazole 20 MG CAPSULE.DR 40 MG PO DAILY AC GERD Prednisone 20 MG TABLET 40 MG PO DAILY Steroids Current Medications: Current Medications Sig/Jose Start time Last Medication Dose Route Stop Time Status Admin Albuterol Sulfate 3 ML EVERY 4 HRS/AWAKE 03/26 1200 AC 03/26 INH 2037 Albuterol Sulfate 3 ML Q6 03/26 0615 DC INH Albuterol Sulfate 3 ML Q4P PRN 03/26 0500 AC INH Albuterol Sulfate 3 ML ONCE ONE 03/26 0200 DC INH 03/26 0201 Albuterol Sulfate 3 ML ONCE ONE 03/26 0200 DC INH 03/26 0201 Albuterol Sulfate 0 .STK-MED ONE 03/26 0155 DC INH Albuterol Sulfate 3 ML ONCE ONE 03/26 0145 DC 03/26 INH 03/26 0146 0256 Albuterol Sulfate 3 ML ONCE ONE 03/26 0145 DC 03/26 INH 03/26 0146 0258 Albuterol Sulfate 3 ML ONCE ONE 03/26 0145 DC 03/26 INH 03/26 0146 0258 Albuterol Sulfate 3 ML ONCE ONE 03/26 0145 DC 03/26 INH 03/26 0146 0258 Albuterol Sulfate 3 ML ONCE ONE 03/26 0145 DC 03/26 INH 03/26 0146 0258 Albuterol Sulfate 3 ML ONCE ONE 03/26 0145 DC 03/26 INH 03/26 0146 0258 Aspirin 325 MG ONCE ONE 03/26 2245 DC 03/26 PO 03/26 2246 224 Azithromycin 500 MG DAILY 03/26 0900 AC 03/26 Sodium Chloride 250 ML IV 1046 Azithromycin 500 MG ONCE ONE 03/26 0345 DC 03/26 Sodium Chloride 250 ML IV 03/26 0444 0536 Budesonide/ 2 PUF BID 03/26 0900 AC 03/26 Formoterol Fumarate INH 2018 Ceftriaxone Sodium 0 .STK-MED ONE 03/26 0527 DC .ROUTE Ceftriaxone Sodium 1,000 MG ONCE ONE 03/26 0345 DC 03/26 IV 03/26 0346 0536 Enoxaparin Sodium 30 MG DAILY 03/26 0900 DC 03/26 SC 0812 Epinephrine 0 .STK-MED ONE 03/26 0326 DC .ROUTE Epinephrine 0.3 MG ONCE ONE 03/26 0145 DC 03/26 SC 03/26 0146 0139 Heparin Sodium 5,000 UNIT Q8 03/27 0600 AC (Porcine) SC Ipratropium [place] 2.5 ML EVERY 4 HRS/AWAKE 03/26 1200 AC 03/26 INH 2037 Ipratropium [place] 2.5 ML ONCE ONE 03/26 0200 DC INH 03/26 0201 Ipratropium [place] 2.5 ML ONCE ONE 03/26 0200 DC INH 03/26 0201 Ipratropium [place] 2.5 ML ONCE ONE 03/26 0145 DC 03/26 INH 03/26 0146 0256 Lidocaine 1 PAT DAILY 03/26 0900 AC 03/26 TOP 1045 Magnesium Sulfate 1 GM ONCE ONE 03/26 0345 DC 06/06 Dextrose/Water 100 ML IV 03/26 0744 0536 Methylprednisolone 40 MG BID 03/26 2100 AC 03/26 IV 2018 Methylprednisolone 40 MG Q6 03/26 1200 DC IV Methylprednisolone 0 .STK-MED ONE 03/26 0150 DC .ROUTE Methylprednisolone 125 MG ONCE ONE 03/26 0145 DC 03/26 IV 03/26 0146 0140 Naloxone HCl 2 MG ONCE ONE 03/26 0145 DC 03/26 IV 03/26 0146 0135 Naloxone HCl 0 .STK-MED ONE 03/26 0143 DC .ROUTE Nicotine 14 MG DAILY 03/26 0900 AC 03/26 TOP 1447 Omeprazole 40 MG DAILY AC 03/26 1010 AC 03/26 PO 1426 Ondansetron HCl 0 .STK-MED ONE 03/26 0150 DC .ROUTE Ondansetron HCl 4 MG ONCE ONE 03/26 0145 DC 03/26 IV 03/26 0146 0202 Simethicone 80 MG Q4P PRN 03/26 1015 CAN PO Simethicone 40 MG Q4P PRN 03/26 1015 AC PO Sodium Chloride 1,000 ML ONCE ONE 03/26 0500 DC 03/26 IV 03/26 1819 0540 Past History Travel History Traveled to [place] past 21 day No Medical History Blood Transfusion Hx: No Neurological: NONE EENT: NONE Cardiovascular: hypertension Respiratory: asthma Gastrointestinal: NONE Hepatic: NONE Renal: nephrolithiasis Musculoskeletal: NONE Psychiatric: NONE Endocrine: BORDERLINE DM Blood Disorders: NONE Cancer(s): NONE 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 Psychosocial History Where Do You Live? Home Smoking Status: Never Smoked ETOH Use: denies use Illicit Drug Use: just got morphine from friend for pain Functional Ability ADLs Independent: dressing, eating, toileting, bathing. Ambulation: independent IADLs Independent: shopping, housework, finances, food prep, telephone, transportation , medication admin. Exam & Diagnostic Data Vital Signs and I&O Vital Signs Date Time Temp Pulse Resp B/P B/P Pulse O2 O2 Flow FiO2 Mean Ox Delivery Rate 03/26 2300 98.5 82 18 110/70 99 Room Air 03/26 1647 99 Nasal 2.0L Cannula 03/26 1600 Nasal 2.0L Cannula 03/26 1600 97.0 84 14 90/70 100 Nasal 2.0L Cannula 03/26 1220 97 Nasal 2.0L Cannula 03/26 0840 97 Nasal 2.0L Cannula 03/26 0800 Nasal 2.0L Cannula 03/26 0800 99 Nasal 2.0L Cannula 03/26 0700 99.0 102 22 106/74 99 Nasal 2.0L Cannula 03/26 0657 97 Nasal 2.0L Cannula 03/26 0657 98.4 97 15 90/70 97 Nasal 2.0L Cannula 03/26 0552 98.3 109 18 110/70 100 BIPAP 28% 03/26 0526 95 100 03/26 0454 96.5 106 20 103/65 100 BIPAP 25% 03/26 0400 97.9 89 18 110/78 100 BIPAP 03/26 0358 100 BIPAP 28% 03/26 0326 100 26 110/70 100 BIPAP 03/26 0203 123 20 179/101 100 Non ReBreather 03/26 0200 128 99 03/26 0200 99 BIPAP 30% 03/26 0151 99 BIPAP 30% 03/26 0140 100 Non 10L ReBreather Intake & Output 03/27 0800 03/27 0000 03/26 1600 03/26 0800 03/26 0000 03/25 1600 Intake Total 640 1064 1100 Output Total 200 550 Balance 460 724 6135 Intake, IV 800 759 8726 Intake, Oral 240 480 0 Number 0 Bowel Movements Output, Urine 200 550 Patient 129 lb Weight Weight Bed scale Measurement Method Physical Exam: General Appearance: well developed/nourished, thin female, alert, awake, oriented Head: normal HEENT: Normal Neck: supple, JVP normal, carotid upstrokes normal bilaterally, no masses or thyromegaly Respiratory: chest non-tender, scattered bilateral rhonchi Cardiovascular: regular rate/rhythm, normal S1, S2, 1-2/6 systolic murmur Abdomen: normal bowel sounds, soft, non-tender Extremities: normal inspection, no edema Vascular: Pulses are 2+ and equal bilaterally Neurologic: Grossly normal/nonfocal Labs/[place] Results: Laboratory Tests 03/26 03/26 03/26 03/26 1959 1400 0800 0449 Chemistry Lactic Acid (0.7 - 2.1 mmol/L) 1.4 Troponin I (< 0.11 ng/ml) 1.75 *H 0.85 *H 0.84 *H Coagulation PT (9.4 - 12.5 SEC) 11.9 INR (0.90 - 1.19) 1.09 APTT (25 - 37 SEC) 27 03/26 03/26 0350 0246 Blood Gas pH (7.35 - 7.45 PH) 7.28 *L pCO2 (35 - 45 TORR) 42 pO2 (80 - 100 TORR) 217 H HCO3 (21 - 28 MEQ/L) 20 L ABG O2 Sat (Measured) (>96.0 %) 97.0 P-50 (Temp Corrected) 98.9 Carboxyhemoglobin (1.5 - 5.0 %) 0.3 L O2 Concentration % 30% Temperature (97.0 - 100.0 FARH) 98.9 Respiration Rate (BPM) 20 O2 Delivery Method BIPAP Vent Mode S/T Expiratory Pressure (CM H2O P) 4 Inspiratory Pressure (CM H2O P) 14 Miscellaneous Phlebotomy Draw Site RIGHT RADIAL Toxicology Urine Opiates Screen (>2000 NG/ML) > 4000.00 H Methadone Screen (>300 NG/ML) < 40 Barbiturate Screen (>200 NG/ML) < 60 Ur Phencyclidine Scrn (>25 NG/ML) < 6.00 Amphetamines Screen (>1000 NG/ML) < 100 U Benzodiazepines Scrn (>200 NG/ML) < 85 Urine Cocaine Screen (>300 NG/ML) < 50 Urine Cannabis Screen (>50 NG/ML) 6.40 Urines Urinalysis LIGHT H Urine Color (YEL,AMB,STR) YEL Urine Clarity (CLEAR) HAZY H Urine pH (5.0 - 8.0) 6.0 Ur Specific [place] (1.001 - 1.035) >= 1.030 Urine Protein (NEG,<30 MG/DL) 30 H Urine Ketones (NEG) NEG Urine Nitrite (NEG) NEG Urine Bilirubin (NEG) NEG Urine Urobilinogen (0.1 - 1.0 EU/dl) 0.2 Ur Leukocyte Esterase (NEG) TRACE H Ur Microscopic SEDIMENT EXAMINED Urine RBC (0 - 5 /HPF) 5-10 H Urine WBC (0 - 2 /HPF) 3-5 H Ur Epithelial Cells (NONE,FEW) FEW Urine Bacteria (NEG/NONE) FEW H Urine Hemoglobin (NEG) MOD H Urine Glucose (N MG/DL) NEG 06/06 0125 Chemistry Sodium (137 - 145 mmol/L) 145 Potassium (3.5 - 5.1 mmol/L) 5.2 H Chloride (98 - 107 mmol/L) 108 H Carbon Dioxide (22 - 30 mmol/L) 26 Anion Gap (5 - 16) 11 BUN (7 - 17 mg/dL) 14 Creatinine (0.5 - 1.0 mg/dL) 1.0 Estimated GFR (>60 ml/min) 56 L BUN/Creatinine Ratio (7 - 25 %) 14.0 Glucose (65 - 99 mg/dL) 172 H Lactic Acid (0.7 - 2.1 mmol/L) 5.7 H Calcium (8.4 - 10.2 mg/dL) 9.2 Phosphorus (2.5 - 4.5 mg/dL) 6.1 H Magnesium (1.6 - 2.3 mg/dL) 2.1 Iron (37 - 170 ug/dL) 27 L TIBC (265 - 497 ug/dL) 349 Ferritin (11.1 - 264 ng/mL) 6.7 L Total Bilirubin (0.2 - 1.3 mg/dL) 0.4 Direct Bilirubin (< 0.4 mg/dL) 0.2 AST (14 - 36 U/L) 51 H ALT (9 - 52 U/L) 49 Alkaline Phosphatase (<127 U/L) 58 Troponin I (< 0.11 ng/ml) < 0.01 Total Protein (6.3 - 8.2 g/dL) 6.0 L Albumin (3.5 - 5.0 g/dL) 3.3 L Amylase (30 - 110 U/L) 86 Lipase (23 - 300 U/L) 68 Vitamin B12 (239 - 931 pg/mL) 650 Folate (2.76 - 20.0 ng/mL) 12.9 TSH (0.270 - 4.200 uIU/mL) 3.960 Free T4 (0.78 - 2.44 ng/dL) 1.09 Coagulation D-Dimer High Sensitivty (0 - 243 ng/ml) 229 Hematology CBC w Diff NO MAN DIFF REQ WBC (4.8 - 10.8 /CUMM) 11.8 H RBC (4.20 - 5.40 /CUMM) 3.99 L Hgb (12.0 - 16.0 G/DL) 9.3 L Hct (37 - 47 %) 30.6 L MCV (81.0 - 99.0 FL) 76.6 L MCH (27.0 - 31.0 PG) 23.4 L MCHC (33.0 - 37.0 G/DL) 30.5 L RDW (11.5 - 14.5 %) 17.8 H Plt Count (130 - 400 /CUMM) 442 H MPV (7.4 - 10.4 FL) 7.8 Gran % (42.2 - 75.2 %) 35.8 L Lymphocytes % (20.5 - 51.1 %) 46.6 Monocytes % (1.7 - 9.3 %) 11.4 H Eosinophils % (0 - 5 %) 5.4 H Basophils % (0.0 - 2.0 %) 0.8 Absolute Granulocytes (1.4 - 6.5 /CUMM) 4.2 Absolute Lymphocytes (1.2 - 3.4 /CUMM) 5.5 H Absolute Monocytes (0.10 - 0.60 /CUMM) 1.3 H Absolute Eosinophils (0.0 - 0.7 /CUMM) 0.6 Absolute Basophils (0.0 - 0.2 /CUMM) 0.1 Toxicology Serum Alcohol (<10 MG/DL) < 10.0 Assessment/Plan Assessment/Plan Assessment: 1. Elevated troponin, abnormal ECG, abnormal echocardiogram-the patient remains a symptomatic from a cardiac standpoint. Nevertheless, her findings are consistent with either an ischemic event or possible Takotsubo cardiomyopathy. 2. Acute hypoxic respiratory failure 3. Opiate overdose 4. Exacerbation of underlying pulmonary issues/asthma 5. Chronic pain syndrome 6. Microcytic anemia Recommendations: -Continue to trend troponin until decreasing -Recheck EKG this morning -Continue IV heparin -Consider addition of low-dose aspirin -Please keep the patient n.p.o. after midnight tonight for possible cardiac catheterization tomorrow if her pulmonary status stabilizes. Consult Acknowledgment - Thank you for your consult request.
[2018-03-27 01:47] LABS: PTT 24 SEC (25-37)
[2018-03-27 04:50] LABS: ABSOLUTE BASOPHIL COUNT 0 /CUMM (0.0-0.2); ABSOLUTE EOSINOPHIL COUNT 0 /CUMM (0.0-0.7); ABSOLUTE GRANULOCYTE CT 5.8 /CUMM (1.4-6.5); ABSOLUTE LYMPH COUNT 0.3 /CUMM (1.2-3.4); ABSOLUTE MONOCYTE COUNT 0.2 /CUMM (0.10-0.60); BASOPHIL % 0.2 % (0.0-2.0); EOSINOPHIL % 0 % (0-5); HEMATOCRIT 26.1 % (37-47); MEAN CORPUSCULAR HGB 22.5 PG (27.0-31.0); MEAN CORPUSCULAR HGB CONC 30.2 G/DL (33.0-37.0); MEAN CORPUSCULAR VOLUME 74.6 FL (81.0-99.0); MEAN PLATELET VOLUME 8.1 FL (7.4-10.4); PLATELET COUNT 364 /CUMM (130-400); RBC DISTRIBUTION WIDTH 17.8 % (11.5-14.5); RED BLOOD CELL CT 3.51 /CUMM (4.20-5.40); WHITE BLOOD CELL COUNT 6.4 /CUMM (4.8-10.8)
[2018-03-27 04:56] LABS: GRANULOCYTE % 91.7 % (42.2-75.2)
--- NOTE | 2018-03-27 06:52 | PN- Resident CRCU ---
Subjective HPI/CRCU Issues: Acute hypoxic respiratory failure, 2/2 Opiate overdose, Asthma exacerbation; Elevated troponin 24 Hour Events: I followed up and examined the patient today. She is resting comfortable in bed , saturating well in room air, not in distress, and does not offer any complaint. Overnight, her troponin continued to trend up to max 1.75 (now at 1.58), without any chest pain, or EKG changes suggesting ischemia. Cardiology was consulted overnight and IV Heparin gtt was started. Echo results pending. VSS. No nursing issues reported to me. Objective Vital Signs & I&O Last 8 Hrs of Vitals and I&O: Vital Signs Date Time Temp Pulse Resp B/P B/P Pulse O2 O2 Flow FiO2 Mean Ox Delivery Rate 03/27 0000 100 Room Air 03/26 2300 98.5 82 18 110/70 99 Room Air 03/26 1647 99 Nasal 2.0L Cannula 03/26 1600 Nasal 2.0L Cannula 03/26 1600 97.0 84 14 90/70 100 Nasal 2.0L Cannula 03/26 1220 97 Nasal 2.0L Cannula 03/26 0840 97 Nasal 2.0L Cannula 03/26 0800 Nasal 2.0L Cannula 03/26 0800 99 Nasal 2.0L Cannula 03/26 0700 99.0 102 22 106/74 99 Nasal 2.0L Cannula 03/26 0657 97 Nasal 2.0L Cannula 03/26 0657 98.4 97 15 90/70 97 Nasal 2.0L Cannula Intake & Output 07 0800 06/07 0000 06/06 1600 Intake Total 513 426 5872 Output Total 300 200 550 Balance 250 440 514 Intake, IV 70 400 584 Intake, Oral 480 240 480 Number 0 0 Bowel Movements Output, Urine 300 200 550 Exam General Appearance: well developed/nourished, no apparent distress, alert, awake , comfortable Other Physical Findings: Head: atraumatic, normal appearance Eyes: Bilateral: normal appearance. Ears, Nose, Throat: normal pharynx, hearing grossly normal Neck: normal inspection, supple, full range of motion, no JVD Respiratory: chest non-tender, b/l sound clear, no wheeze Cardiovascular: regular rate/rhythm Peripheral Pulses: normal Gastrointestinal: normal bowel sounds, soft, non-tender Extremities: normal inspection, normal capillary refill, normal range of motion, no edema Neurologic/Psych: no motor/sensory deficits, awake, alert, oriented x 3, normal mood/affect, grossly intact Cranial Nerves: normal hearing, normal speech, PERRL Skin: intact, normal color, warm/dry Lymphatic: no anterior cervical shanthi IV Drips IV Drips: None Nutrition Nutrition: P.O. diet Current Medications: Current Medications Sig/Jose Start time Last Medication Dose Route Stop Time Status Admin Albuterol Sulfate 3 ML EVERY 4 HRS/AWAKE 03/26 1200 AC 03/26 INH 2037 Albuterol Sulfate 3 ML Q6 03/26 0615 DC INH Albuterol Sulfate 3 ML Q4P PRN 03/26 0500 AC INH Aspirin 325 MG ONCE ONE 03/26 2245 DC 03/26 PO 03/26 2246 224 Azithromycin 500 MG DAILY 03/26 900 AC 03/26 Sodium Chloride 250 ML IV 1046 Budesonide/ 2 PUF BID 03/26 09 AC 03/26 Formoterol Fumarate INH 2018 Enoxaparin Sodium 30 MG DAILY 03/26 900 DC 03/26 SC 0812 Heparin Sodium 5,000 UNIT Q8 03/27 0600 CAN (Porcine) SC Heparin Sodium 4,000 UNIT ONCE ONE 03/27 0215 DC 03/27 (Porcine) IV 03/27 0216 0206 Heparin Sodium 25,000 UNIT Q24H 03/27 0100 AC 03/27 (Porcine) IV 0128 Sodium Chloride 500 ML Ipratropium [place] 2.5 ML EVERY 4 HRS/AWAKE 03/26 1200 AC 03/26 INH 2037 Ketorolac 15 MG ONCE ONE 03/27 0315 DC 03/27 Tromethamine IV 03/27 0316 0309 Lidocaine 1 PAT DAILY 03/26 0900 AC 03/26 TOP 1045 Magnesium Sulfate 1 GM ONCE ONE 03/26 0345 DC 03/26 Dextrose/Water 100 ML IV 03/26 0744 0536 Methylprednisolone 40 MG BID 03/26 2100 AC 03/26 IV 2018 Methylprednisolone 40 MG Q6 03/26 1200 DC IV Nicotine 14 MG DAILY 03/26 0900 AC 03/26 TOP 1447 Omeprazole 40 MG DAILY AC 03/26 1010 AC 03/27 PO 0507 Simethicone 80 MG Q4P PRN 03/26 1015 CAN PO Simethicone 40 MG Q4P PRN 03/26 1015 AC PO Sodium Chloride 1,000 ML ONCE ONE 03/26 0500 DC 03/26 IV 03/26 9692 9023 ECHO Findings: Pending Impression/Plan Impression/Problem List Impression: 63-year-old female with past medical history of asthma, hypertension, anemia, kidney stones with multiple surgeries, chronic pain secondary to osteoarthritis, gastric bypass surgery in 2004, was brought in by ambulance after being found unresponsive, arousal on Narcan. She is currently admitted in the ICU for the management of following issues: RESPIRATORY # Acute hypoxic respiratory failure, improving, now on RA -Differentials: opiate overdose, asthma exacerbation, possibly mixed Patient seems much better compared to her presentation. She is now on room air and is not in any resp difficulty. We'll continue to watch for any respiratory changes. -Converted Solu-Medrol to PO Prednisone 40 mg today -Continue azithromycin for bronchitis -[place]/[facility] -black off worker consult for substance abuse, safety at home INFECTIOUS DISEASE # Bronchitis Continue Azithromycin daily CARDIOLOGY # Elevated troponin, with wall motion abnormility Although patient did not have any chest pain/pressure/heaviness, her troponin heaven from <0.01 to 0.84. Initially thought of Type 2 SC, as she was asymptomatic , no EKG changes, and an alternate explanation for increased demand, we trended troponin and EKG. Echo done showed wall motion abnormalities, reduced ejection fraction, among other findings, and her repeat EKG showed T-wave inversions although the patient remained asymptomatic. Cardiology was consulted at that time, who suggested IV Heparin and differentials of Takotsubo coronary vessel disease. * Continue to trend troponin and EKG * Continue IV heparin * Nothing by mouth from midnight for possible catheterization in the morning * Cardiology recommendations appreciated HEMATOLOGY # Anemia, chronic Target Hb 8 (today is 7.9), will not transfuse today METABOLIC # Lactic acidosis, resolved ALIMENTARY No issues NEPHROLOGY No issues NEUROLOGY No issues Other: Nicotine dependence Chronic pain: -Although she came in with opiate overdose, she has an ischemic process going on and local analgesics have not been successful in controlling her pain, so we are starting her on low dose 2 mg IV morphine q4-6hr PRN for severe pain. Still continuing Acetaminophen for less severe pain. HOUSEKEEPING Diet: Heart healthy diet, NPO from [place] DVT prophylaxis: SQ Lovenox Code status: Full code IV access: Peripheral Family update: - Problem List: 1. Respiratory failure 2. Opioid overdose 3. Asthma exacerbation 4. Bronchitis 5. Elevated troponin 6. HFrEF (heart failure with reduced ejection fraction) Pain Ratin Pain Location: back, rt shoulder Pain Goal: Pain 4 or less Pain Plan: prn Tomorrow's Labs & Rationales: CBC, BEP Plan DVT/Prophylaxis: mechanical, pharmacological (IV Heparin)
[2018-03-27 08:00] VITALS: BP 120/70
--- NOTE | 2018-03-27 08:21 | Discharge Summary ---
See Addendum Visit Information Visit Dates Admission Date: 03/26/18 Discharge Date: 03/28/2018 Hospital Course Course Attending Physician: Rozina SCHMITZ,Miguel Primary Care Physician: Pedro Gerber MD Hospital Course: Ms Mckee is a 63-year-old female with past medical history of asthma, hypertension, anemia, kidney stones with multiple surgeries, chronic pain secondary to osteoarthritis, gastric bypass surgery in 2004, was brought in by ambulance after being found unresponsive, with pinpoint pupils, and received Narcan with some arousal. She admitted to taking Morphine 100 mg for pain that was not prescribed to her. She was found to have acute hypoxic respiratory failure in the ED, and was placed on BiPAP, and she improved overnight. She was also found to be wheezing initially and received Epinephrine by the EMS and later IV steroids in the ED. Her respiratory status and mentation cleared by by the next day but her troponin increased from <0.01 to 0.84 which we trended and it maxed to 1.75. Echo done showed wall motion abnormalities (see full report below), with differentials being takotsubo vs coronary. She was started on IV Heparin, aspirin, and statin. All this time, she did not have any chest pain/pressure/discomfort or any dyspnea. Coronary catheterization planned with leadite worker and she was transferred on 03/28/2018. Patient will need outpatient pfts and should follow-up with pulmonology. Allergies: Coded Allergies: NO KNOWN ALLERGIES (09/01/15) Significant Procedures: Echo done on 03/26/18: CONCLUSIONS 1. Moderate aortic sclerosis is present with no valvular stenosis or insufficiency. 2. Mitral leaflet thickening is present with mild mitral insufficiency and mild left atrial enlargement 3. There is no significant pericardial fluid present 4. The left ventricular chamber size is normal. There is marked hypokinesia of the mid to distal septum, anteroapical and anterolateral segments with an ejection fraction of approximately 30%. There is no apical thrombus detected. 5. The right heart structures are grossly normal. Mild to moderate tricuspid insufficiency is present with mild pulmonic insufficiency and an estimated RV sysrolic pressure of 30 mmHg Titi Fajardo M.D. (Electronically Signed) Final Date: 26 March 2018 23:58 Disposition Summary Disposition Principal Diagnosis: Acute hypoxic respiratory failure Opiate overdose Additional Diagnosis: Asthma exacerbation Discharge Disposition: other general hospital Discharge Instructions General Discharge Information Code Status: Full Code Patient's Diet: Heart healthy diet Patient's Activity: As tolerated Follow-Up Instructions/Appts: Please follow-up with your primary care physician and leadite worker as instructed. Please follow-up with pain management appointment. Please return to emergency if symptoms worsen. Medications at Discharge Discharge Medications: Stop taking the following medications: Ondansetron (Zofran Odt) 4 MG TAB.RAPDIS SUBLINGUAL THREE TIMES DAILY as needed for nausea Qty = 10 Oxycodone HCl/Acetaminophen (Percocet 5-325 MG Tablet) 1 EACH TABLET ORAL THREE TIMES DAILY as needed for pain Qty = 16 Continue taking these medications: Budesonide/Formoterol Fumarate (Symbicort 160-4.5 Mcg Inhaler) 160 MCG-4.5 MCG/ ACTUATION HFA.AER.AD 2 Puff Inhale through mouth TWICE DAILY Comments: Last Taken:03/28/18 Time:8am Diazepam (Diazepam) 10 MG TABLET 1 Tablet ORAL THREE TIMES A DAY NEEDED Comments: not administered Start taking the following new medications: Atorvastatin Calcium (Atorvastatin Calcium) 20 MG TABLET 1 Tablet ORAL 5 PM Qty = 30 Refills = 1 Comments: Last Taken:03/27/18 Time:5pm Aspirin (Aspirin*) 81 MG TAB.CHEW 1 Tablet ORAL DAILY Qty = 30 Refills = 1 Comments: Last Taken:03/28/18 Time:8am Omeprazole (Omeprazole) 20 MG CAPSULE.DR 40 Milligram ORAL DAILY BEFORE BREAKFAST Qty = 30 No Refills Comments: Last Taken:03/28/18 Time:5am Prednisone (Prednisone) 20 MG TABLET 40 Milligram ORAL DAILY Qty = 2 No Refills Comments: Last Taken:03/28/18 Time:8am 2 of 3 doses given Heparin Sod,Porcine/0.9 % NaCl (Heparin 25,000 Unit/500 Ml-Ns) 25,000 UNIT/500 ML (50 UNIT/ML) IV.SOLN 1 Unknown INTRAVEN CONTINUOUS INFUSION Qty = 1 No Refills Comments: currently infusing @ 18.7 / hr pump # [id number] Azithromycin (Azithromycin) 250 MG TABLET 1 Tablet ORAL DAILY Qty = 2 No Refills Comments: IV route administered Last Taken:03/28/18 Time:8am Copies To: Elijah Fajardo MD; Buzz SCHMITZ,Pedro Cardoza
[2018-03-27] MEDS ORDERED: ATORVASTATIN CA20 M1 PO (08:33)
[2018-03-27] MEDS ORDERED: ASPIRIN81 M4 PO (08:33)
--- NOTE | 2018-03-27 08:41 | Patient Discharge Instructions ---
Discharge Instructions General Discharge Information You were seen/treated for: Acute hypoxic respiratory failure secondary to opiate overuse; elevated troponin with wall motion abnormality, low ejection fraction, high RVSP Special Instructions: Please follow-up with your primary care physician and net developer architect as instructed. Please follow-up with pain management appointment. Please return to emergency if symptoms worsen. Diet Continue normal diet: Yes Recommended Diet: Heart Healthy Activity Full Activity/No Limits: No Activity Self Limited: Yes Acute Coronary Syndrome Inclusion Criteria At DC or during hospital stay patient has or had the following: ACS DIAGNOSIS Yes Discharge Core Measures Meds if any: Prescribed or Continued at Discharge Meds if any: NOT Prescribed or Continued at Discharge Congestive Heart Failure Inclusion Criteria At DC or during hospital stay patient has or had the following: CHF DIAGNOSIS No Discharge Core Measures Meds if any: Prescribed or Continued at Discharge Meds if any: NOT Prescribed or Continued at Discharge Cerebrovascular accident Inclusion Criteria At DC or during hospital stay patient has or had the following: CVA/TIA Diagnosis No Discharge Core Measures Meds if any: Prescribed or Continued at Discharge Meds if any: NOT Prescribed or Continued at Discharge Venous thromboembolism Inclusion Criteria VTE Diagnosis No VTE Type NONE VTE Confirmed by (Test) NONE Discharge Core Measures - Per Current guidelines, there needs to be overlap - treatment for the first 5 days of Warfarin therapy. - If discharged on Warfarin prior to 5 days of - overlap therapy, the patient will need to be - assessed for post discharge needs including - *Post discharge parental anticoagulation - *Warfarin and/or parental anticoagulation education - *Follow up date to check INR post discharge At least 5 days overlap therapy as Inpatient No Meds if any: Prescribed or Continued at Discharge Note: Overlap Therapy is Warfarin and Anticoagulant Meds if any: NOT Prescribed or Continued at Discharge
[2018-03-27 08:50] LABS: PTT 47 SEC (25-37)
--- NOTE | 2018-03-27 10:01 | PN- CRCU ---
Subjective HPI/Critical Care Issues: pt seen and examined ef 30% troponins elevated no other events comfortable Review of Systems Review of Systems Constitutional: Denies: chills, diaphoresis, fever, malaise, weakness. EENTM: Denies: double vision, icterus. Cardiovascular: Denies: chest pain, edema, orthopena, palpitations, peripheral edema. Respiratory: Denies: cough, hemoptysis, orthopnea, short of breath, sputum production. GI: Denies: abdominal pain, bloating, constipation, diarrhea. Genitourinary: Denies: dysuria, frequency. Musculoskeletal: Reports: muscle pain. Skin: Reports: no symptoms. Neurological/Psychological: Reports: no symptoms. Hematologic/Endocrine: Reports: no symptoms. Immunologic/Allergic: Reports: no symptoms. Objective Current Medications: Current Medications Sig/Jose Start time Last Medication Dose Route Stop Time Status Admin Albuterol Sulfate 3 ML EVERY 4 HRS/AWAKE 03/26 1200 AC 03/27 INH 0834 Albuterol Sulfate 3 ML Q4P PRN 03/26 0500 AC INH Aspirin 81 MG DAILY 03/27 0900 AC 03/27 PO 0933 Aspirin 325 MG ONCE ONE 03/26 2245 DC 03/26 PO 03/26 2246 2242 Atorvastatin Calcium 20 MG 1700 03/27 1700 AC PO Azithromycin 500 MG DAILY 03/26 0900 AC 03/27 Sodium Chloride 250 ML IV 0938 Budesonide/ 2 PUF BID 03/26 0900 AC 03/27 Formoterol Fumarate INH 0937 Enoxaparin Sodium 30 MG DAILY 03/26 0900 DC 03/26 SC 0812 Heparin Sodium 5,000 UNIT Q8 03/27 0600 CAN (Porcine) SC Heparin Sodium 4,000 UNIT ONCE ONE 03/27 0215 DC 03/27 (Porcine) IV 03/27 0216 0206 Heparin Sodium 25,000 UNIT Q24H 03/27 0100 AC 03/27 (Porcine) IV 0128 Sodium Chloride 500 ML Ipratropium [place] 2.5 ML EVERY 4 HRS/AWAKE 03/26 1200 AC 03/27 INH 0835 Ketorolac 15 MG ONCE ONE 03/27 0315 DC 03/27 Tromethamine IV 03/27 0316 0309 Lidocaine 1 PAT DAILY 03/26 0900 AC 03/27 TOP 0934 Methylprednisolone 40 MG BID 03/26 2100 DC 03/26 IV 2018 Methylprednisolone 40 MG Q6 03/26 1200 DC IV Nicotine 14 MG DAILY 03/26 09 AC 03/27 TOP 0933 Omeprazole 40 MG DAILY AC 03/26 1010 AC 03/27 PO 0507 Polyethylene Glycol 17 GM DAILY PRN 03/27 0845 AC 03/27 PO 0936 Prednisone 40 MG DAILY 03/27 900 AC PO 03/29 0901 Simethicone 80 MG Q4P PRN 03/26 1015 CAN PO Simethicone 40 MG Q4P PRN 03/26 1015 AC PO Sodium Chloride 1,000 ML ONCE ONE 03/26 0500 DC 03/26 IV 03/26 1819 0540 Vital Signs & I&O Last 24 Hrs of Vitals and I&O: Vital Signs Date Time Temp Pulse Resp B/P B/P Pulse O2 O2 Flow FiO2 Mean Ox Delivery Rate 03/27 0839 95 Room Air 03/27 0000 100 Room Air 03/26 2300 98.5 82 18 110/70 99 Room Air 03/26 1647 99 Nasal 2.0L Cannula 03/26 1600 Nasal 2.0L Cannula 03/26 1600 97.0 84 14 90/70 100 Nasal 2.0L Cannula 03/26 1220 97 Nasal 2.0L Cannula Intake & Output 03/27 1600 03/27 0800 03/27 0000 Intake Total 550 640 Output Total 300 200 Balance 250 440 Intake, IV 70 400 Intake, Oral 480 240 Number 0 0 Bowel Movements Output, Urine 300 200 Exam General Appearance: no apparent distress, alert, awake Head: atraumatic, normal appearance Ears, Nose, Throat: normal pharynx, normal ENT inspection Neck: normal inspection Respiratory: no respiratory distress, lungs clear Cardiovascular: regular rate/rhythm Abdomen: normal bowel sounds, soft Back: normal inspection Extremities: no edema Neurologic/Psychiatric: awake, alert, oriented x 3 Cranial Nerves: normal hearing, normal speech Skin: intact Results Last 24 Hrs of Lab Results: Laboratory Tests 03/27/18 0845: Troponin I Pending 03/27/18 0740: APTT 47 H 03/27/18 0500: Hemoglobin A1c 6.1 H 03/27/18 0346: Anion Gap 11, Estimated GFR > 60, Glucose 131 H, Calcium 8.6, Phosphorus 3.4, Magnesium 1.9, Total Bilirubin 0.4, AST 60 H, ALT 46, Albumin 2.8 L, CBC w Diff MAN DIFF ORDERED, RBC 3.51 L, MCV 74.6 L, MCH 22.5 L, MCHC 30.2 L, RDW 17.8 H, MPV 8.1, Gran % 91.7 H, Lymphocytes % 4.6 L, Monocytes % 3.5, Eosinophils % 0, Basophils % 0.2, Absolute Granulocytes 5.8, Segmented Neutrophils 87 H, Band Neutrophils 1, Absolute Lymphocytes 0.3 L, Lymphocytes 9 L, Monocytes 3, Absolute Monocytes 0.2, Absolute Eosinophils 0, Absolute Basophils 0, Platelet Estimate ADEQUATE, Polychromasia 1+, Hypochromic- Microcytic 1+, Poikilocytosis 2+, Anisocytosis 1+, Microcytic Cells 1+, Ovalocytes 1+, Elliptocytes 1+, Fld Total RBCs Counted 100 03/27/18 0127: Troponin I 1.58 *H, Triglycerides 36, Cholesterol 142, LDL Cholesterol, Calc 49 L, HDL Cholesterol 86 H, Cholesterol/HDL Ratio 2, APTT 24 L 03/26/18 1959: Troponin I 1.75 *H 03/26/18 1400: Troponin I 0.85 *H, PT 11.9, INR 1.09, APTT 27 Impression/Plan Impression/Plan Impression/Plan: Miguel Wallace M.D. have examined this patient, reviewed available EMR data, personally reviewed images, discussed with resident/PA/CREW LEADER/CONTROL ROOM OPERATOR, discussed management plan with housestaff and nursing staff, discussed managment plan all of healthcare providers, discussed management plan with patient and/or family, agreed with resident/PA/CREW LEADER/CONTROL ROOM OPERATOR. The past history and parts of the chart have been autopopulated. Impression 63 year old woman * RESOLVED - acute hypoxemic respiratory failure - secondary to opiate misuse in the setting of underlying asthma/bronchitis/reactive airways disease * reduced EF in setting of elevated troponins Plan -dc solumedrol -begin prednisone 40mg po (total of 5 days of steroids) without a taper -course of zithromax -f/u cardiology, plan for likely cardiac cath -initiated on symbicort -recommended outpatient pfts DVT prophylaxis at all times TTS 35 min Code Status: Full Code
[2018-03-27 15:57] LABS: PTT 62 SEC (25-37)
[2018-03-27 21:42] VITALS: BP 110/70
[2018-03-28 03:54] LABS: ABSOLUTE BASOPHIL COUNT 0 /CUMM (0.0-0.2); ABSOLUTE EOSINOPHIL COUNT 0 /CUMM (0.0-0.7); ABSOLUTE GRANULOCYTE CT 4.6 /CUMM (1.4-6.5); ABSOLUTE LYMPH COUNT 1.1 /CUMM (1.2-3.4); ABSOLUTE MONOCYTE COUNT 0.7 /CUMM (0.10-0.60); BASOPHIL % 0 % (0.0-2.0); EOSINOPHIL % 0.3 % (0-5); GRANULOCYTE % 71.3 % (42.2-75.2); HEMATOCRIT 24.6 % (37-47); MEAN CORPUSCULAR HGB 22.9 PG (27.0-31.0); MEAN CORPUSCULAR HGB CONC 31.1 G/DL (33.0-37.0); MEAN CORPUSCULAR VOLUME 73.8 FL (81.0-99.0); MEAN PLATELET VOLUME 7.9 FL (7.4-10.4); PLATELET COUNT 347 /CUMM (130-400); RBC DISTRIBUTION WIDTH 17.6 % (11.5-14.5); RED BLOOD CELL CT 3.33 /CUMM (4.20-5.40); WHITE BLOOD CELL COUNT 6.4 /CUMM (4.8-10.8)
[2018-03-28 03:57] LABS: PTT 52 SEC (25-37)
[2018-03-28 06:33] VITALS: BP 140/88
--- NOTE | 2018-03-28 07:10 | PN- Pulmonary ---
Subjective HPI/Critical Care Issues: pt seen and examined no tele events awaiting cardiac cath no cp, no dyspnea, no cough, no pope, no n/v/d/c, no fevers, no chills Objective Current Medications: Current Medications Sig/Jose Start time Last Medication Dose Route Stop Time Status Admin Albuterol Sulfate 3 ML BID 03/28 900 AC INH Albuterol Sulfate 3 ML EVERY 4 HRS/AWAKE 03/26 1200 DC 03/27 INH 1730 Albuterol Sulfate 3 ML Q4P PRN 03/26 0500 AC INH Aspirin 81 MG DAILY 03/27 09 AC 03/27 PO 0933 Atorvastatin Calcium 20 MG 1700 03/27 1700 AC 03/27 PO 1702 Azithromycin 500 MG DAILY 03/26 09 AC 03/27 Sodium Chloride 250 ML IV 0938 Budesonide/ 2 PUF BID 03/26 09 AC 03/27 Formoterol Fumarate INH 2152 Heparin Sodium 1,823 UNIT BOLUS ONE 03/28 0500 DC 03/28 (Porcine) IV 03/28 0501 0503 Heparin Sodium 1,752 UNIT ONCE ONE 03/27 0915 DC 03/27 (Porcine) IV 03/27 0916 1054 Heparin Sodium 25,000 UNIT Q24H 03/27 0100 AC 03/28 (Porcine) IV 0426 Sodium Chloride 500 ML Ipratropium [place] 2.5 ML EVERY 4 HRS/AWAKE 03/26 1200 DC 03/27 INH 1730 Ketorolac 15 MG .STK-MED ONE 03/27 1804 DC Tromethamine IV 03/27 1805 Lidocaine 1 PAT DAILY 03/26 09 AC 03/27 TOP 0934 Methylprednisolone 40 MG BID 03/26 2100 DC 03/26 IV 2018 Morphine Sulfate 2 MG Q4-6 PRN 03/27 1115 AC 03/28 IV 0557 Nicotine 14 MG DAILY 03/26 09 AC 03/27 TOP 0933 Omeprazole 40 MG DAILY AC 03/26 1010 AC 03/28 PO 0523 Polyethylene Glycol 17 GM DAILY PRN 03/27 0845 AC 03/27 PO 0936 Prednisone 40 MG DAILY 03/27 09 AC 03/27 PO 03/29 0901 1053 Simethicone 40 MG Q4P PRN 03/26 1015 AC PO Vital Signs & I&O Last 24 Hrs of Vitals and I&O: Vital Signs Date Time Temp Pulse Resp B/P B/P Pulse O2 O2 Flow FiO2 Mean Ox Delivery Rate 03/28 0633 98.3 82 20 140/88 96 Room Air 03/28 0000 Room Air 03/27 2142 97.8 76 20 110/70 96 Room Air 03/27 1730 97 Room Air / 1600 98 Room Air 03/27 0839 95 Room Air 03/27 0800 97.9 74 18 120/70 100 Room Air 03/27 0800 100 Room Air Intake & Output 03/28 08 06/ 0000 03/27 1600 Intake Total 248 152 675 Output Total Balance 248 152 675 Intake, IV 128 32 125 Intake, Oral 120 120 550 Number 1 Bowel Movements Patient 134 lb Weight Weight Bed scale Measurement Method Exam Other Physical Findings: General Appearance: no apparent distress, alert, awake Head: atraumatic, normal appearance Ears, Nose, Throat: normal pharynx, normal ENT inspection Neck: normal inspection Respiratory: no respiratory distress, lungs clear Cardiovascular: regular rate/rhythm Abdomen: normal bowel sounds, soft Back: normal inspection Extremities: no edema Neurologic/Psychiatric: awake, alert, oriented x 3 Cranial Nerves: normal hearing, normal speech Skin: intact Results Last 24 Hrs of Lab Results: Laboratory Tests 03/28/18 0300: Anion Gap 7, Estimated GFR > 60, Glucose 90, Calcium 8.1 L, Phosphorus 3.2, Magnesium 1.8, Total Bilirubin 0.3, AST 56 H, ALT 55 H, Albumin 2.4 L, APTT 52 H, CBC w Diff NO MAN DIFF REQ, RBC 3.33 L, MCV 73.8 L, MCH 22.9 L, MCHC 31.1 L, RDW 17.6 H, MPV 7.9, Gran % 71.3, Lymphocytes % 17.3 L, Monocytes % 11.1 H, Eosinophils % 0.3, Basophils % 0, Absolute Granulocytes 4.6, Absolute Lymphocytes 1.1 L, Absolute Monocytes 0.7 H, Absolute Eosinophils 0, Absolute Basophils 0 03/27/18 2045: Troponin I Cancelled 03/27/18 1505: Troponin I 1.47 *H, APTT 62 H 03/27/18 0845: Troponin I 2.09 *H 03/27/18 0740: APTT 47 H Impression/Plan Impression/Plan Impression/Plan: Impression 63 year old woman * RESOLVED - acute hypoxemic respiratory failure - secondary to opiate misuse in the setting of underlying asthma/bronchitis/reactive airways disease * reduced EF in setting of elevated troponins Plan -prednisone 40mg po (total of 5 days of steroids) without a taper -course of zithromax -f/u cardiology, plan for cardiac cath -initiated on symbicort -recommended outpatient pfts - information given to patient for office follow up , she will call DVT prophylaxis at all times TTS 35 min
--- NOTE | 2018-03-28 07:44 | PN- Housestaff ---
See Addendum Subjective Follow-up For: Hypoxic respiratory failure secondary to opioid overdose, elevated troponins Tele-Events Since Last Visit: Sinus rhythm, 6070s Subjective: No overnight events. The patient has been n.p.o. overnight for possible cath this morning. She denies any chest pain but does have some back pain and some left flank pain. She has no shortness of breath, abdominal pain, or other complaints. Review of Systems Constitutional: Reports: no symptoms. EENTM: Reports: no symptoms. Cardiovascular: Reports: no symptoms. Respiratory: Reports: no symptoms. Gastrointestinal: Reports: no symptoms. Genitourinary: Reports: no symptoms. Musculoskeletal: Reports: see HPI. Skin: Reports: no symptoms. Neurological/Psychological: Reports: no symptoms. Hematologic/Endocrine: Reports: no symptoms. Immunologic/Allergic: Reports: no symptoms. Objective Last 24 Hrs of Vital Signs/I&O Vital Signs Date Time Temp Pulse Resp B/P B/P Pulse O2 O2 Flow FiO2 Mean Ox Delivery Rate 03/28 0633 98.3 82 20 140/88 96 Room Air /08 0000 Room Air / 2142 97.8 76 20 110/70 96 Room Air / 1730 97 Room Air 06/07 1600 98 Room Air 06/07 0839 95 Room Air /07 0800 97.9 74 18 120/70 100 Room Air /07 0800 100 Room Air Intake & Output /08 0800 06/08 0000 / 1600 Intake Total 248 152 675 Output Total Balance 248 152 675 Intake, IV 128 32 125 Intake, Oral 120 120 550 Number 1 Bowel Movements Patient 60.781 kg Weight Weight Bed scale Measurement Method Physical Exam General Appearance: Alert, Oriented X3, Cooperative, No Acute Distress Cardiovascular: Regular Rate, Normal S1, Normal S2 Lungs: Clear to Auscultation Abdomen: Normal Bowel Sounds, Soft, No Tenderness Extremities: No Edema, Normal Pulses, No Tenderness/Swelling Current Medications: Current Medications Sig/Jose Start time Last Medication Dose Route Stop Time Status Admin Albuterol Sulfate 3 ML BID 03/28 0900 AC INH Albuterol Sulfate 3 ML EVERY 4 HRS/AWAKE / 1200 DC 03/27 INH 1730 Albuterol Sulfate 3 ML Q4P PRN 03/26 0500 AC INH Aspirin 81 MG DAILY 03/27 0900 AC 03/27 PO 0933 Atorvastatin Calcium 20 MG 1700 03/27 1700 AC 03/27 PO 1702 Azithromycin 500 MG DAILY 03/26 0900 AC 03/27 Sodium Chloride 250 ML IV 0938 Budesonide/ 2 PUF BID 03/26 09 AC 03/27 Formoterol Fumarate INH 2152 Heparin Sodium 1,823 UNIT BOLUS ONE 03/28 0500 DC 03/28 (Porcine) IV 03/28 0501 0503 Heparin Sodium 1,752 UNIT ONCE ONE 03/27 0915 DC 03/27 (Porcine) IV 03/27 0916 1054 Heparin Sodium 25,000 UNIT Q24H 03/27 0100 AC 03/28 (Porcine) IV 0426 Sodium Chloride 500 ML Ipratropium [place] 2.5 ML EVERY 4 HRS/AWAKE 03/26 1200 DC 03/27 INH 1730 Ketorolac 15 MG .STK-MED ONE 03/27 1804 DC Tromethamine IV 03/27 1805 Lidocaine 1 PAT DAILY 03/26 09 AC 03/27 TOP 0934 Methylprednisolone 40 MG BID 03/26 2100 DC 03/26 IV 2018 Morphine Sulfate 2 MG Q4-6 PRN 03/27 1115 AC 03/28 IV 0557 Nicotine 14 MG DAILY 03/26 0900 AC 03/27 TOP 0933 Omeprazole 40 MG DAILY AC 03/26 1010 AC 03/28 PO 0523 Polyethylene Glycol 17 GM DAILY PRN 03/27 0845 AC 03/27 PO 0936 Prednisone 40 MG DAILY 03/27 0900 AC 03/27 PO 03/29 0901 1053 Simethicone 40 MG Q4P PRN 03/26 1015 AC PO Last 24 Hrs of Lab/[place] Results Last 24 Hrs of Labs/Mics: Laboratory Tests 03/28/18 0300: Anion Gap 7, Estimated GFR > 60, Glucose 90, Calcium 8.1 L, Phosphorus 3.2, Magnesium 1.8, Total Bilirubin 0.3, AST 56 H, ALT 55 H, Albumin 2.4 L, APTT 52 H, CBC w Diff NO MAN DIFF REQ, RBC 3.33 L, MCV 73.8 L, MCH 22.9 L, MCHC 31.1 L, RDW 17.6 H, MPV 7.9, Gran % 71.3, Lymphocytes % 17.3 L, Monocytes % 11.1 H, Eosinophils % 0.3, Basophils % 0, Absolute Granulocytes 4.6, Absolute Lymphocytes 1.1 L, Absolute Monocytes 0.7 H, Absolute Eosinophils 0, Absolute Basophils 0 03/27/18 2045: Troponin I Cancelled 03/27/18 1505: Troponin I 1.47 *H, APTT 62 H 03/27/18 0845: Troponin I 2.09 *H Assessment/Plan Assessment: Ms. Mckee is a 63-year-old female with past medical history of asthma, hypertension, anemia, kidney stones with multiple surgeries, chronic pain secondary to osteoarthritis, gastric bypass surgery in 2004, was brought in by ambulance after being found unresponsive, arousal on Narcan. Problem list: 1. Acute hypoxic respiratory failure secondary to opioid overdose 2. Elevated troponin with regional wall abnormality and EKG changes # Acute hypoxic respiratory failure: Patient was admitted with respiratory failure and was placed on oxygen therapy. This is thought to be secondary to opioid overdose that was unintentional. She was transferred to the ICU out of concern for intubation but she was never intubated or placed on BiPAP. Respiratory status has improved and she is now off of oxygen. -Quick prednisone taper -Continue azithromycin for bronchitis -TRC/nebs -Appreciate pulmonology recommendations -cabinet worker consult for substance abuse, safety at home # Elevated troponin with wall motion abnormility: Although patient did not have any chest pain/pressure/heaviness, her troponin heaven from <0.01 to 2.09. Initially thought of Type 2 LA, as she was asymptomatic, no EKG changes, and an alternate explanation for increased demand, we trended troponin and EKG. Echo done showed wall motion abnormalities, reduced ejection fraction, among other findings, and her repeat EKG showed T-wave inversions although the patient remained asymptomatic. Cardiology was consulted at that time, who suggested IV Heparin and differentials of Takotsubo coronary vessel disease. She is now going to be transferred to [facility] for catheterization. -Transfer patient for cath -Continue IV heparin -N.p.o. -Appreciate cardiology recommendations #Chronic medical problems: -Continue other home medications DVT prophylaxis with heparin N.p.o. Full code Problem List: 1. Opioid overdose Pain Ratin Pain Location: no Pain Goal: Remain pain free Pain Plan: see a/p Tomorrow's Labs & Rationales: no
[2018-03-28] MEDS ORDERED: [UNRECOGNIZED DRUG - CODE] IV (09:18)
[2018-03-28] MEDS ORDERED: AZITHROMYCIN250 M1 PO (09:20)
[2018-03-28] MEDS ORDERED: PREDNISONE20 M1 PO (09:20)
[2018-03-28] MEDS ORDERED: OMEPRAZOLE20 M2 PO (09:20)
[2018-03-28 14:30] LABS: PTT 61 SEC (25-37)
--- NOTE | 2018-03-28 14:40 | PN- Cardiology ---
Subjective Subjective: Stable with no CV symptoms; awaiting cath. Objective Vital Signs and I&Os Vital Signs Date Time Temp Pulse Resp B/P B/P Pulse O2 O2 Flow FiO2 Mean Ox Delivery Rate 03/28 0814 95 Room Air 03/28 0633 98.3 82 20 140/88 96 Room Air 03/28 0000 Room Air 03/27 2142 97.8 76 20 110/70 96 Room Air 03/27 1730 97 Room Air 03/27 1600 98 Room Air Intake & Output 03/28 1600 03/28 0803/28 0000 03/27 1600 03/27 0800 03/27 0000 Intake Total 248 152 675 550 640 Output Total 300 200 Balance 248 152 675 250 440 Intake, IV 128 32 125 70 400 Intake, Oral 120 120 550 480 240 Number 1 0 0 Bowel Movements Output, Urine 300 200 Patient 134 lb Weight Weight Bed scale Measurement Method Current Medications: Current Medications Sig/Jose Start time Last Medication Dose Route Stop Time Status Admin Albuterol Sulfate 3 ML BID 03/28 900 AC 03/28 INH 0812 Albuterol Sulfate 3 ML EVERY 4 HRS/AWAKE 03/26 1200 DC 03/27 INH 1730 Albuterol Sulfate 3 ML Q4P PRN 03/26 0500 AC INH Aspirin 81 MG DAILY 03/27 0900 AC 03/28 PO 0815 Atorvastatin Calcium 20 MG 1700 03/27 1700 AC 03/27 PO 1702 Azithromycin 500 MG DAILY 03/26 0900 AC 03/28 Sodium Chloride 250 ML IV 0816 Budesonide/ 2 PUF BID 03/26 0900 AC 03/28 Formoterol Fumarate INH 0815 Heparin Sodium 1,823 UNIT BOLUS ONE 03/28 0500 DC 03/28 (Porcine) IV 03/28 0501 0503 Heparin Sodium 5,000 UNIT .STK-MED ONE 03/28 0436 DC (Porcine) IV 03/28 0437 Heparin Sodium 25,000 UNIT Q24H 03/27 0100 AC 03/28 (Porcine) IV 0426 Sodium Chloride 500 ML Ipratropium [place] 2.5 ML EVERY 4 HRS/AWAKE 03/26 1200 DC 03/27 INH 1730 Ketorolac 15 MG .STK-MED ONE 03/27 1804 DC Tromethamine IV 03/27 1805 Lidocaine 1 PAT DAILY 03/26 09 AC 03/28 TOP 0816 Morphine Sulfate 2 MG Q4-6 PRN 03/27 1115 AC 03/28 IV 1311 Nicotine 14 MG DAILY 03/26 0900 AC 03/28 TOP 0815 Omeprazole 40 MG DAILY AC 03/26 1010 AC 03/28 PO 0523 Polyethylene Glycol 17 GM DAILY PRN 03/27 0845 AC 03/27 PO 0936 Prednisone 40 MG DAILY 03/27 900 AC 03/28 PO 03/29 0901 0815 Simethicone 40 MG Q4P PRN 03/26 1015 AC PO Results Last 48 Hrs of Labs/Mics: Laboratory Tests 03/28/18 1150: APTT 61 H 03/28/18 0300: Anion Gap 7, Estimated GFR > 60, Glucose 90, Calcium 8.1 L, Phosphorus 3.2, Magnesium 1.8, Total Bilirubin 0.3, AST 56 H, ALT 55 H, Albumin 2.4 L, APTT 52 H, CBC w Diff NO MAN DIFF REQ, RBC 3.33 L, MCV 73.8 L, MCH 22.9 L, MCHC 31.1 L, RDW 17.6 H, MPV 7.9, Gran % 71.3, Lymphocytes % 17.3 L, Monocytes % 11.1 H, Eosinophils % 0.3, Basophils % 0, Absolute Granulocytes 4.6, Absolute Lymphocytes 1.1 L, Absolute Monocytes 0.7 H, Absolute Eosinophils 0, Absolute Basophils 0 03/27/18 2045: Troponin I Cancelled 03/27/18 1505: Troponin I 1.47 *H, APTT 62 H 03/27/18 0845: Troponin I 2.09 *H 03/27/18 0740: APTT 47 H 03/27/18 0500: Hemoglobin A1c 6.1 H 03/27/18 0346: Anion Gap 11, Estimated GFR > 60, Glucose 131 H, Calcium 8.6, Phosphorus 3.4, Magnesium 1.9, Total Bilirubin 0.4, AST 60 H, ALT 46, Albumin 2.8 L, CBC w Diff MAN DIFF ORDERED, RBC 3.51 L, MCV 74.6 L, MCH 22.5 L, MCHC 30.2 L, RDW 17.8 H, MPV 8.1, Gran % 91.7 H, Lymphocytes % 4.6 L, Monocytes % 3.5, Eosinophils % 0, Basophils % 0.2, Absolute Granulocytes 5.8, Segmented Neutrophils 87 H, Band Neutrophils 1, Absolute Lymphocytes 0.3 L, Lymphocytes 9 L, Monocytes 3, Absolute Monocytes 0.2, Absolute Eosinophils 0, Absolute Basophils 0, Platelet Estimate ADEQUATE, Polychromasia 1+, Hypochromic- Microcytic 1+, Poikilocytosis 2+, Anisocytosis 1+, Microcytic Cells 1+, Ovalocytes 1+, Elliptocytes 1+, Fld Total RBCs Counted 100 03/27/18 0127: Troponin I 1.58 *H, Triglycerides 36, Cholesterol 142, LDL Cholesterol, Calc 49 L, HDL Cholesterol 86 H, Cholesterol/HDL Ratio 2, APTT 24 L 03/26/181958: Troponin I 1.75 *H Assessment/Plan Assessment/Plan Assessment: 1. Elevated troponin, abnormal ECG, abnormal echocardiogram-the patient remains a symptomatic from a cardiac standpoint. Nevertheless, her findings are consistent with either an ischemic event or possible Takotsubo cardiomyopathy. 2. Acute hypoxic respiratory failure 3. Opiate overdose 4. Exacerbation of underlying pulmonary issues/asthma 5. Chronic pain syndrome 6. Microcytic anemia -H/H lower today on heparin at 05/14; discussed with housestaff and Dr. Farfan. Recommendations: - Continue current meds - NPO pending cardiac cath today at R ; [facility] - Further plans after cath - ? further work up for microcytic anemia. - Patient to followup with me post cath Continue telemetry? Yes
== END 2018-03-28 15:25 | disposition short-term general hospital (02) | DRG 917 ==
LOC: ERH 01:33 → 1NO 03:56 → CRI 03:56 → ERHI 03:56 → EDBEDREQTM 04:45 → ENRESERV 05:39 → CRI 06:21 → ENTRNSPT 03-27 20:11 → 1NO 03-27 21:19 → CMPTRNSPT 03-27 21:24 → 1NO 03-28 08:49
PROVIDERS: Internal Medicine; Internal Medicine Adolescent Medicine; Pediatrics; Preventive Medicine Public Health & General Preventive Medicine; Radiology Vascular & Interventional Radiology; Specialist; Student in an Organized Health Care Education/Training Program
DX: T40.2X1A Poisoning by other opioids, accidental (unintentional), initial encounter (principal); J96.01 Acute respiratory failure with hypoxia; E87.2 Acidosis; J45.901 Unspecified asthma with (acute) exacerbation; I50.22 Chronic systolic (congestive) heart failure; Y92.009 Unspecified place in unspecified non-institutional (private) residence as the place of occurrence of the external cause; N20.0 Calculus of kidney; G89.29 Other chronic pain; Z79.4 Long term (current) use of insulin; Z98.84 Bariatric surgery status; D50.9 Iron deficiency anemia, unspecified; R79.89 Other specified abnormal findings of blood chemistry; Z79.82 Long term (current) use of aspirin; Z79.891 Long term (current) use of opiate analgesic; Z79.52 Long term (current) use of systemic steroids; I11.0 Hypertensive heart disease with heart failure
CPT/HCPCS: 1NSP; CCU; 36415; 36592; 71045; 80307; 81001; 82436; 87040; 87070; 93005; 93010; 93306; 94644; 96361; 96365; 96366; 96372; 96374; 96375; 99291; G0480; J0171; J0456; J0696; J1644; J1650; J2310; J2405; J2920; J2930; J3490; J7040